=== PATIENT | female | born 1965 | race Caucasian/White ===

== ENCOUNTER → 2016-03-05 | Outpatient (CLI) | payer OTHER ==
[2016-03-05 14:20] LABS: CH 31.2; CHCM 34.5; HCT 38.5 % (34.0-46.0); HDW 2.74; MCH 30.7 pg (25.0-35.0); MCHC 33.8 g/dL (31.0-37.0); MCV 90.8 fL (80.0-100.0); Mean Platelet Volume 6.5; RBC 4.24 m/uL (3.80-5.40); RDW 12.7 % (11.5-15.5); WBC 10.3 k/uL (3.8-10.6)
[2016-03-05 14:28] LABS: Partial Thromboplastin Time 24.7 sec (22.0-30.0); Prothrombin Time 10.4 sec (9.0-12.0)
== END | disposition home or self-care (01) ==
LOC: LABWHC1 12:43
PROVIDERS: ATTEND Otolaryngology
DX: Z01.812 Encounter for preprocedural laboratory examination (principal); J35.01 Chronic tonsillitis
CPT/HCPCS: 85027; 85610; 85730

== ENCOUNTER 2016-03-13 08:41 | Day surgery (SDC) | payer OTHER ==
[2016-03-10 12:17] VITALS: BMI 47.4
--- NOTE | 2016-03-13 06:28 | HP ---
DATE OF ADMISSION: Chief complaint is chronic tonsillitis. HISTORY OF PRESENT ILLNESS: This patient is a 50-year-old female who recently presented to my office complaining of having recurrent episodes of tonsillitis despite treatment with various types of oral antibiotics. During these episodes, the patient ( ) comes quite ill and experiences an extremely severe sore throat. She also complains that her tonsils are quite large and at times they swell up so much during these infections that they interfere with her breathing. This tends to provoke panic attacks for which she apparently takes Xanax on a p.r.n. basis. She is a nonsmoker and never has used any tobacco products. At the time she was seen in my office, clinical examination of oropharynx revealed 4+ cryptic tonsils filled with white cheesy debris. It was recommended the patient undergo a tonsillectomy under general anesthesia. Past medical history reveals the patient has no known allergies to medications. Current medications include a course of Augmentin that she is completing, Xanax, Motrin and atenolol. The patient was advised to stop the Motrin as of now and not resume until further notice after her surgery. REVIEW OF SYSTEMS: Cardiovascular is positive for PVCs. Respiratory is negative. Gastrointestinal is negative. Metabolic/endocrine is negative. Musculoskeletal is positive for osteoarthritis. The remainder of review of systems is unremarkable. Past surgical history Reveals the patient is 2 para, ( ) , 2 , 0 miscarriages. She has not had any other surgeries. PHYSICAL EXAMINATION: The patient is a anxious 50-year-old female who is alert and cooperative. HEENT EXAMINATION: Patient is normocephalic. Tympanic membranes are normal. Middle ear spaces are free of any fluid or infection. Pupils are equal, round, and reactive to light and accommodation. Extraocular movements are within normal limits. Intranasal examination reveals moderate septal deviation with compensatory hypertrophy of inferior turbinates. Examination of oropharynx reveals 4+ tonsillar hypertrophy with very prominent tonsillar crypts filled with white cheesy debris. Palpation of the neck and cranial nerves 2 through 12 are all within normal limits as is the remainder of the head and neck exam. CHEST/CARDIOVASCULAR: Both lung rojas are clear to percussion and auscultation. The patient is in regular sinus rhythm. S1 and S2 are present without evidence of any murmurs, S3s or S4. Peripheral pulses are bilaterally symmetrical and within normal limits. ABDOMEN: There is no evidence of any masses, megaly or tenderness. The abdomen is soft. Skin is unremarkable. Musculoskeletal and neurological are within normal limits. PELVIC/RECTAL EXAM; The pelvic and rectal exam is deferred at this time because the patient has this done on a regular basis at her family physician's office. The remainder of the physical exam is essentially unremarkable. IMPRESSION: Chronic tonsillitis with tonsillar hypertrophy. PLAN: The patient is scheduled to undergo a tonsillectomy under general anesthesia in a.m. ATTENTION RNS IN THE PRESURGICAL AREA: I have ordered for the patient to receive 2 million units of aqueous penicillin G IV and also 1000 mg of Ofirmev IV, both to be given upon arrival to the presurgical area once an intravenous line has been established. No other presurgical prophylactic antibiotics have been ordered by me or my office. If any other prophylactic antibiotics other than aqueous Pen-G are sent to the presurgical area for this patient, please cancel them and send them back to pharmacy and make sure that the patient's account is credited appropriately. I have also ordered for the patient to have Venodynes placed on her legs in the presurgical area. I have explained the operation/procedure to the patient, including the risks, benefits, side effects, alternative therapies (including not receiving the proposed treatment or service), the likelihood of the patient achieving his/her goals, and potential recuperation problems for the procedure/sedation/analgesia, as well as any blood products, if indicated. I also explained to the patient the risks, benefits, and side effects of the alternatives, as well as the risks related to not receiving the proposed procedure, care treatment or services.
[~2016-03-13 08:41] MED LIST: HYDROmorphone 1 MG/ML 1 ML SYRINGE IVP PRN; LACTATED RINGERS 1,000 ML IV SCH; MIDAZOLAM 2 MG/2 ML VIAL IV PRN; NALOXONE 0.4 MG/ML 1 ML VIAL IV PRN; ONDANSETRON 4 MG/2 ML VIAL IVP ONE; Pre Op ABX Message 1 EACH MISC MISCELLANE ONE; SCOPOLAMINE 1.5MG/72HR PATCH TRANSDERM ONE
[2016-03-13] MEDS ORDERED: LIDOCAINE 1% 20 ML VIAL (10MG/ML) FOR IV START INTRADERMA ONE (09:24)
[2016-03-13] MEDS ORDERED: DEXAMETHASONE SOD PHOSPHATE 10 MG/ML 1 ML VIAL IV ONE (09:43)
[2016-03-13] MEDS ORDERED: ACETAMINOPHEN IV (For NPO) 1,000 MG in EMPTY BAG 1 BAG IVPB ONE ×2 (09:45→16:00)
[2016-03-13] MEDS ORDERED: PENICILLIN G POTASSIUM 2,000,000 UNIT in DEXTROSE 5% IN WATER 100 ML IVPB ONE ×2 (09:45)
[2016-03-13] MEDS ORDERED: ePHEDrine 50 MG/ML 1 ML AMP ONE (10:18)
[2016-03-13] MEDS ORDERED: LIDOCAINE 1% INJ 10MG/ML (20 ML MDV) ONE (10:18)
[2016-03-13] MEDS ORDERED: PROPOFOL 10 MG/ML 20 ML VIAL IV ONE (10:18)
[2016-03-13] MEDS ORDERED: SUCCINYLCHOLINE CHLORIDE VIAL 200 MG/10 ML VIAL IV ONE (10:18)
[2016-03-13] MEDS ORDERED: MIDAZOLAM 2 MG/2 ML VIAL ONE (10:18)
[2016-03-13] MEDS ORDERED: fentaNYL (PF) 50 MCG/ML 2 ML AMP ONE (10:18)
[2016-03-13] MEDS ORDERED: BUPIVACAINE (PF) 0.5% 30 ML VIAL SQ ONE ×4 (10:44)
[2016-03-13] MEDS ORDERED: LACTATED RINGERS 1,000 ML IV ONE (11:08)
[2016-03-13] MEDS ORDERED: LACTATED RINGERS 1,000 ML IV SCH (11:15)
[2016-03-13] MEDS ORDERED: HYDROmorphone PCA 5 MG/25 ML SYRINGE IV PRN (11:15)
[2016-03-13 12:13] VITALS: TEMP 97.4
[2016-03-13] MEDS ORDERED: ONDANSETRON 4 MG/2 ML VIAL IVP PRN (16:00)
[2016-03-13 16:13] VITALS: BP 112/54; PULSE 73; RESP 16
--- NOTE | 2016-03-13 18:11 | OP ---
DATE OF SERVICE: 03/13/2016 SURGEON: VAL VALENTIN MD ART HISTORY INSTRUCTOR: PREOPERATIVE DIAGNOSIS: Chronic tonsillitis. POSTOPERATIVE DIAGNOSIS: Chronic tonsillitis. OPERATION: Tonsillectomy. ANESTHESIA: General anesthesia. ESTIMATED BLOOD LOSS: Less than 50 mL. SPECIMENS REMOVED: COMPLICATIONS: None. OPERATIVE FINDINGS: OPERATIVE PROCEDURE: The patient was placed on the operating table in the supine position, after uneventful induction and endotracheal intubation, satisfactory general anesthesia was obtained. Next, the #3 Teena-Jaime mouth gag was introduced into the oropharynx, expanded and suspended from a Man stand. Following this, both peritonsillar areas were injected with approximately 10 mL of 0.25% Marcaine solution without epinephrine. Following this, attention was directed toward the right tonsil which was grasped with the tonsillar forceps and pulled medially. The sickle knife was used to make an incision 4 mm lateral to the anterior pillar, beginning at the superior pole and working down to the inferior pole with a similar incision being carried out parallel to the posterior pillar. The angle scissors and the serrated Marybeth dissector were used to dissect the tonsil away from the tonsillar fossa. The tonsil itself was excised en toto using the tonsillar snare. Hemostasis was obtained using suction cautery. A sponge was placed in the empty tonsillar fossa. Attention was then directed to the left tonsil where the same procedure was carried out, with the left tonsil being grasped with the tonsillar forceps and pulled medially. The sickle knife was used to make an incision 4 mm lateral to the anterior pillar beginning at the superior pole and working down to the inferior pole with a similar incision being carried out parallel to the posterior pillar. Once again, the angle scissors and the serrated Marybeth dissector were used to dissect the tonsil away from the tonsillar fossa and the tonsil itself was excised en toto using the tonsillar snare. Hemostasis was obtained using suction cautery. A sponge was placed in the empty tonsillar fossa. The mouth gag was relaxed for a period of approximately 7 minutes and upon re-expanding and removing all sponges, no evidence of any active bleeding was noted. At this point, the procedure was terminated. There were no intraoperative complications. The patient tolerated the procedure well and was returned to the recovery room in satisfactory condition.
== END 2016-03-13 16:59 | disposition home or self-care (01) ==
LOC: OR 08:41
PROVIDERS: ATTEND Otolaryngology
DX: J35.01 Chronic tonsillitis (principal); Z79.1 Long term (current) use of non-steroidal anti-inflammatories (NSAID); Z79.891 Long term (current) use of opiate analgesic; Z79.899 Other long term (current) drug therapy; Z79.2 Long term (current) use of antibiotics
CPT/HCPCS: 81025; 88304; 42826; J2250; J0330; J1100; J2540; J2405; J2001; J3010; J1170; J0131; J2704

== ENCOUNTER 2016-03-19 05:56 | Emergency (ER) | payer OTHER ==
--- NOTE | 2016-03-19 06:40 | ED ---
Pediatric HENT HPI - General Chief Complaint: ENT Stated Complaint: Tonsils Bleed Post Op Time Seen by Provider: 03/19/16 06:21 Source: patient, RN notes reviewed Mode of arrival: ambulatory Limitations: no limitations - History of Present Illness Initial Comments: This patient is a 50-year-old woman who presents to have evaluation this morning after she had felt some drainage in her throat and then when she coughed found that it was bloody. She reports that 6 days ago she had tonsillectomy performed by Dr. Bloom. The patient states that when she notes the bleeding she had her bring her here. She did have some nausea and vomited was small amount of blood. Currently the patient is not having nausea or vomiting. She is feeling a little bit anxious and warm. She is having just a little bit of discomfort in the throat. She is not having any difficulty with speech or any shortness of breath. Patient denies use of any anticoagulant or blood in her medications. She is denying chest pain, palpitations, lightheadedness, syncope, or other symptoms of anemia. MD Complaint: other Onset/Timin -: hour(s) Fever: No Pain Location: throat - Related Data Home Medications Medication Instructions Recorded Confirmed Atenolol [Tenormin] 25 mg PO HS 11/14/15 03/19/16 ALPRAZolam [Xanax] 0.25 mg PO TID PRN 03/10/16 03/19/16 Previous Rx's Medication Instructions Recorded Cefdinir [Omnicef] 600 mg PO Q24HR #20 capsule NS 03/13/16 oxyCODONE HCL/ACETAMINOPHEN 1 tab PO Q4HR PRN #40 tab NS 03/13/16 [Percocet 7.5-325 mg] Allergies Allergy/AdvReac Type Severity Reaction Status Date / Time latex Allergy TINGLING Verified 03/13/16 09:09 OF MOUTH/LIPS, RASH TO SKIN Milk Containing Products Allergy Abdominal Verified 03/13/16 09:09 [Dairy] Pain, DIARRHEA prednisone AdvReac "OCC Verified 03/13/16 09:09 CAUSES HEART TO RACE, FEEL MISERABLE" Review of Systems ROS Statement: Those systems with pertinent positive or pertinent negative responses have been documented in the HPI. ROS Other: All systems not noted in ROS Statement are negative. Constitutional: Denies: fever, chills, weakness ENT: Reports: as per HPI, throat pain, other (Post tonsillectomy bleeding) Respiratory: Denies: cough, dyspnea, wheezes Cardiovascular: Denies: chest pain, palpitations, syncope Gastrointestinal: Reports: vomiting. Denies: abdominal pain Musculoskeletal: Denies: back pain Neurological: Denies: headache Hematological/Lymphatic: Denies: easy bleeding Past Medical History Past Medical History: GERD/Reflux, Musculoskeletal Disorder, Thyroid Disorder Additional Past Medical History / Comment(s): Occasional PVC's. Seasonal allergies. HX THYROID PROB, NO CURRENT TX. LT KNEE PAIN, CREWS'S CYST. ENLARGED TONSILS History of Any Multi-Drug Resistant Organisms: None Reported Past Surgical History: Section, Tonsillectomy Additional Past Surgical History / Comment(s): C-S X2. Past Anesthesia/Blood Transfusion Reactions: Family History of Problems w/ Anesthesia, Motion Sickness Additional Past Anesthesia/Blood Transfusion Reaction / Comment(s): MOTHER HAD HX AGITATION AFTER ANESTHESIA. Past Psychological History: Anxiety, Depression Additional Psychological History / Comment(s): "HX PP BLUES" IN PAST. Smoking Status: Never smoker Past Alcohol Use History: None Reported Past Drug Use History: None Reported - Past Family History Mother Family Medical History: Cancer General Exam Limitations: no limitations General appearance: alert, in no apparent distress, obese Head exam: Present: atraumatic, normocephalic Eye exam: Present: normal appearance. Absent: scleral icterus, conjunctival injection ENT exam: Present: mucous membranes moist, other (Patient has granulation tissue to the tonsillar pillars bilaterally. There has been some recent bleeding on the right side, but no active bleeding. Uvula is midline without edema. no evidence of secondary infection.) Neck exam: Present: normal inspection, full ROM. Absent: tenderness, meningismus, lymphadenopathy, thyromegaly Respiratory exam: Present: normal lung sounds bilaterally. Absent: respiratory distress, wheezes, rales, rhonchi, stridor Cardiovascular Exam: Present: regular rate, normal rhythm, normal heart sounds. Absent: systolic murmur, diastolic murmur, rubs, gallop Neurological exam: Present: alert Psychiatric exam: Present: anxious Skin exam: Present: warm, dry, intact, normal color. Absent: rash, cyanosis, diaphoretic, erythema, petechiae, pallor, mottled Course Vital Signs 03/19/16 06:06 Temperature 98.4 F Pulse Rate 74 Respiratory 16 Rate Blood Pressure 125/70 O2 Sat by Pulse 97 Oximetry Medical Decision Making - Lab Data Result diagrams: 03/19/16 06:41 Lab Results 03/19/16 Range/Units 06:41 WBC 9.0 (3.8-10.6) k/uL RBC 4.39 (3.80-5.40) m/uL Hgb 13.3 (11.4-16.0) gm/dL Hct 39.4 (34.0-46.0) % MCV 89.7 (80.0-100.0) fL MCH 30.3 (25.0-35.0) pg MCHC 33.8 (31.0-37.0) g/dL RDW 13.0 (11.5-15.5) % Plt Count 332 (150-450) k/uL Neutrophils % 77 % Lymphocytes % 15 % Monocytes % 5 % Eosinophils % 2 % Basophils % 0 % Neutrophils # 7.0 (1.3-7.7) k/uL Lymphocytes # 1.4 (1.0-4.8) k/uL Monocytes # 0.4 (0-1.0) k/uL Eosinophils # 0.2 (0-0.7) k/uL Basophils # 0.0 (0-0.2) k/uL Disposition Clinical Impression: Tonsillar bleed Disposition: HOME SELF-CARE Condition: Good Instructions: *[facility] - ([facility]) Tonsillectomy Post-Op Instructions Referrals: Elpidio Edouard Jr, DO [Primary Care Provider] - 1-2 days Ervin Bloom MD [STAFF PHYSICIAN] - 1-2 days
[2016-03-19 06:52] LABS: Basophils % (A) 0 %; CH 31.3; Eosinophils # (A) 0.2 k/uL (0-0.7); Eosinophils % (A) 2 %; HCT 39.4 % (34.0-46.0); HDW 2.87; HGB 13.3 gm/dL (11.4-16.0); Luc % (Auto) 1; Lymphocytes # (A) 1.4 k/uL (1.0-4.8); Lymphocytes % (A) 15 %; MCH 30.3 pg (25.0-35.0); MCHC 33.8 g/dL (31.0-37.0); MCV 89.7 fL (80.0-100.0); Mean Platelet Volume 6.6; Monocytes # (A) 0.4 k/uL (0-1.0); Monocytes % (A) 5 %; Neutrophils % (A) 77 %; RBC 4.39 m/uL (3.80-5.40); WBC (Perox) 9.22
[2016-03-19 07:52] VITALS: BP 128/54; PULSE 62; RESP 15; TEMP 97.6
== END 2016-03-19 07:51 | disposition home or self-care (01) ==
LOC: EC 05:56
DX: J95.830 Postprocedural hemorrhage of a respiratory system organ or structure following a respiratory system procedure (principal); F41.9 Anxiety disorder, unspecified; F32.9 Major depressive disorder, single episode, unspecified; Z79.899 Other long term (current) drug therapy; Z91.040 Latex allergy status; Z88.8 Allergy status to other drugs, medicaments and biological substances; Z91.011 Allergy to milk products; Z90.89 Acquired absence of other organs; Y83.8 Other surgical procedures as the cause of abnormal reaction of the patient, or of later complication, without mention of misadventure at the time of the procedure
CPT/HCPCS: 36415; 85025; 99283

== ENCOUNTER → 2016-03-19 | Outpatient (CLI) | payer OTHER ==
[~2016-03-19] MED LIST changes: +ACETAMINOPHEN IV (For NPO) 100 ML IVPB NR; +DEXAMETHASONE SOD PHOSPHATE 10 MG/ML 1 ML VIAL IV NR; -HYDROmorphone 1 MG/ML 1 ML SYRINGE IVP PRN; +HYDROmorphone 2 MG/ML 1 ML SYRINGE IVP NR; +LACTATED RINGERS 1,000 ML IV ONE; -LACTATED RINGERS 1,000 ML IV SCH; -MIDAZOLAM 2 MG/2 ML VIAL IV PRN; -NALOXONE 0.4 MG/ML 1 ML VIAL IV PRN; +ONDANSETRON 4 MG/2 ML VIAL IVP NR; -ONDANSETRON 4 MG/2 ML VIAL IVP ONE; -Pre Op ABX Message 1 EACH MISC MISCELLANE ONE; -SCOPOLAMINE 1.5MG/72HR PATCH TRANSDERM ONE; +SODIUM CHLORIDE 0.9% 250 ML in EMPTY BAG 1 BAG IV PRN; +SODIUM CHLORIDE 0.9% 500 ML in EMPTY BAG 1 BAG IV PRN
[2016-03-19 13:18] VITALS: BP 128/62; PULSE 74; RESP 18; TEMP 98.4
== END | disposition home or self-care (01) ==
LOC: PROCWHC3 11:52
PROVIDERS: ATTEND Otolaryngology
DX: E86.0 Dehydration (principal)
CPT/HCPCS: 96360; 96361; 96367; 96375; J1170; J1100; J2405; J0131

== ENCOUNTER 2017-03-06 12:30 | Emergency (ER) | payer BC, OTHER ==
[2017-03-06] MEDS ORDERED: SODIUM CHLORIDE 0.9% 1,000 ML IV STA (13:03)
--- NOTE | 2017-03-06 13:10 | ED ---
General Adult HPI - General Chief complaint: Abdominal Pain Stated complaint: Abd Pain Time Seen by Provider: 03/06/17 12:53 Source: patient, RN notes reviewed Mode of arrival: ambulatory Limitations: no limitations - History of Present Illness Initial comments: Patient 51-year-old female who presents to return today with a chief complaint of abdominal pain over the last several months. She states that she was diagnosed with mono. Patient states that she began having pain over the last month. She states worse on the right side. States worse and right upper quadrant wrapping around to the back. She does not that is worse after she eats certain foods. Patient denies any other complaints or associated symptoms. Patient denies any recent fever, chills, shortness of breath, chest pain, nausea vomiting, numbness or tingling, dysuria or hematuria, constipation or diarrhea, headaches or visual changes, or any other complaints. - Related Data Home Medications Medication Instructions Recorded Confirmed Atenolol [Tenormin] 25 mg PO HS 11/14/15 03/06/17 ALPRAZolam [Xanax] 0.125 - 0.25 mg PO TID PRN 03/10/16 03/06/17 Ibuprofen [Motrin] 800 mg PO Q8H PRN 03/06/17 03/06/17 Allergies Allergy/AdvReac Type Severity Reaction Status Date / Time latex Allergy TINGLING Verified 03/06/17 13:08 OF MOUTH/LIPS, RASH TO SKIN Milk Containing Products Allergy Abdominal Verified 03/06/17 13:08 [Dairy] Pain, DIARRHEA prednisone AdvReac "OCC Verified 03/06/17 13:08 CAUSES HEART TO RACE, FEEL MISERABLE" Review of Systems ROS Statement: Those systems with pertinent positive or pertinent negative responses have been documented in the HPI. ROS Other: All systems not noted in ROS Statement are negative. Past Medical History Past Medical History: GERD/Reflux, Musculoskeletal Disorder, Thyroid Disorder Additional Past Medical History / Comment(s): Occasional PVC's. Seasonal allergies. HX THYROID PROB, NO CURRENT TX. LT KNEE PAIN, CREWS'S CYST. ENLARGED TONSILS History of Any Multi-Drug Resistant Organisms: None Reported Past Surgical History: Section, Tonsillectomy Additional Past Surgical History / Comment(s): C-S X2. Past Anesthesia/Blood Transfusion Reactions: Family History of Problems w/ Anesthesia, Motion Sickness Additional Past Anesthesia/Blood Transfusion Reaction / Comment(s): MOTHER HAD HX AGITATION AFTER ANESTHESIA. Past Psychological History: Anxiety, Depression Smoking Status: Never smoker Past Alcohol Use History: None Reported Past Drug Use History: None Reported - Past Family History Mother Family Medical History: Cancer General Exam Limitations: no limitations General appearance: alert Head exam: Present: atraumatic, normocephalic, normal inspection Eye exam: Present: normal appearance, EOMI. Absent: scleral icterus, conjunctival injection, periorbital swelling ENT exam: Present: normal exam, normal oropharynx, mucous membranes moist Neck exam: Present: normal inspection, full ROM Respiratory exam: Present: normal lung sounds bilaterally. Absent: respiratory distress, wheezes, rales, rhonchi, stridor Cardiovascular Exam: Present: regular rate, normal rhythm, normal heart sounds. Absent: systolic murmur, diastolic murmur, rubs, gallop, clicks GI/Abdominal exam: Present: other (Normal appearance of the abdomen. Normal bowel sounds. Abdomen soft on palpation. Patient does have tenderness in the left upper quadrant and epigastric. Greatest tenderness in the right upper quadrant with positive Cadet sign. No rebound tenderness. No guarding.) Extremities exam: Present: normal inspection, full ROM, normal capillary refill. Absent: tenderness, pedal edema, joint swelling, calf tenderness Neurological exam: Present: alert, oriented X3, CN II-XII intact Psychiatric exam: Present: normal affect, normal mood Skin exam: Present: warm, dry, intact, normal color. Absent: rash Course Vital Signs 03/06/17 03/06/17 12:44 14:05 Temperature 98.1 F Pulse Rate 64 63 Respiratory 18 18 Rate Blood Pressure 123/61 126/58 O2 Sat by Pulse 99 98 Oximetry Medical Decision Making - Medical Decision Making Patient's labs been reviewed are unremarkable. Her ultrasound of the right upper quadrant shows hepatomegaly with some fatty infiltrate. Results were discussed with the patient. Patient resting comfortably at this time. Advised following up she does have an appointment Wednesday morning with her family doctor. Advised to return to emergency room symptoms increase or worsen or for new concerns. States understanding and is in agreement. - Lab Data Result diagrams: 03/06/17 13:20 03/06/17 13:20 Lab Results 03/06/17 03/06/17 03/06/17 Range/Units 13:20 13:20 13:20 WBC 8.0 (3.8-10.6) k/uL RBC 4.65 (3.80-5.40) m/uL Hgb 14.1 (11.4-16.0) gm/dL Hct 41.4 (34.0-46.0) % MCV 89.0 (80.0-100.0) fL MCH 30.4 (25.0-35.0) pg MCHC 34.1 (31.0-37.0) g/dL RDW 12.7 (11.5-15.5) % Plt Count 245 (150-450) k/uL Neutrophils % 79 % Lymphocytes % 14 % Monocytes % 5 % Eosinophils % 1 % Basophils % 0 % Neutrophils # 6.3 (1.3-7.7) k/uL Lymphocytes # 1.1 (1.0-4.8) k/uL Monocytes # 0.4 (0-1.0) k/uL Eosinophils # 0.1 (0-0.7) k/uL Basophils # 0.0 (0-0.2) k/uL Sodium 139 (137-145) mmol/L Potassium 4.3 (3.5-5.1) mmol/L Chloride 102 (98-107) mmol/L Carbon Dioxide 27 (22-30) mmol/L Anion Gap 10 mmol/L BUN 6 L (7-17) mg/dL Creatinine 0.64 (0.52-1.04) mg/dL Est GFR (MDRD) Af Amer >60 (>60 ml/min/1.73 sqM) Est GFR (MDRD) Non-Af >60 (>60 ml/min/1.73 sqM) Glucose 94 (74-99) mg/dL Calcium 10.1 (8.4-10.2) mg/dL Total Bilirubin 1.1 (0.2-1.3) mg/dL AST 20 (14-36) U/L ALT 23 (9-52) U/L Alkaline Phosphatase 58 (38-126) U/L Total Protein 7.2 (6.3-8.2) g/dL Albumin 4.4 (3.5-5.0) g/dL Amylase 32 (30-110) U/L Lipase 106 (23-300) U/L Urine Color Light Yellow Urine Appearance Cloudy H (Clear) Urine pH 6.0 (5.0-8.0) Ur Specific [place] 1.002 (1.001-1.035) Urine Protein Negative (Negative) Urine Glucose (UA) Negative (Negative) Urine Ketones Negative (Negative) Urine Blood Negative (Negative) Urine Nitrite Negative (Negative) Urine Bilirubin Negative (Negative) Urine Urobilinogen <2.0 (<2.0) mg/dL Ur Leukocyte Esterase Negative (Negative) Urine RBC <1 (0-5) /hpf Urine WBC <1 (0-5) /hpf Ur Squamous Epith Cells 5 H (0-4) /hpf Urine Bacteria Rare H (None) /hpf Disposition Clinical Impression: Hepatomegaly, Abdominal pain Disposition: HOME SELF-CARE Condition: Good Instructions: Abdominal Pain (ED) Additional Instructions: Please use medication as discussed. Please follow-up with family doctor in the next 2 days. Please return to emergency room if the symptoms increase or worsen or for any other concerns. Referrals: Elpidio Edouard Jr, [Doctor of Osteopathic Medicine] - 1-2 days Time of Disposition: 15:28
[2017-03-06 13:50] LABS: Basophils % (A) 0 %; Eosinophils # (A) 0.1 k/uL (0-0.7); Eosinophils % (A) 1 %; HCT 41.4 % (34.0-46.0); HGB 14.1 gm/dL (11.4-16.0); Lymphocytes # (A) 1.1 k/uL (1.0-4.8); Lymphocytes % (A) 14 %; MCH 30.4 pg (25.0-35.0); MCHC 34.1 g/dL (31.0-37.0); Mean Platelet Volume 6.6; Monocytes # (A) 0.4 k/uL (0-1.0); Monocytes % (A) 5 %; Neutrophils # (A) 6.3 k/uL (1.3-7.7); Neutrophils % (A) 79 %; Platelet Count 245 k/uL (150-450); RBC 4.65 m/uL (3.80-5.40); RDW 12.7 % (11.5-15.5)
[2017-03-06 13:56] LABS: ALT 23 U/L (9-52); AST 20 U/L (14-36); Albumin 4.4 g/dL (3.5-5.0); Alkaline Phosphatase 58 U/L (38-126); Amylase 32 U/L (30-110); Anion Gap 10 mmol/L; Blood Urea Nitrogen 6 mg/dL (7-17); Calcium 10.1 mg/dL (8.4-10.2); Carbon Dioxide 27 mmol/L (22-30); Chloride 102 mmol/L (98-107); Glucose 94 mg/dL (74-99); Lipase 106 U/L (23-300); Potassium 4.3 mmol/L (3.5-5.1); Sodium 139 mmol/L (137-145); Total Bilirubin 1.1 mg/dL (0.2-1.3); Total Protein 7.2 g/dL (6.3-8.2)
[2017-03-06 14:00] LABS: Appearance,Urine Cloudy (Clear); Bacteria,Urine Rare /hpf; Bilirubin,Urine Negative (Negative); Blood,Urine Negative (Negative); Color,Urine Light Yellow; Glucose,Urine (UA) Negative (Negative); Ketones,Urine Negative (Negative); Leukocyte Esterase,Urine Negative (Negative); Nitrite,Urine Negative (Negative); Protein,Urine Negative (Negative); RBC,Urine <1 /hpf (0-5); Specific Gravity,Urine 1.002 (1.001-1.035); Squamous Epithelial Cell,Urine 5 /hpf (0-4); Urobilinogen,Urine <2.0 mg/dL (<2.0); WBC,Urine <1 /hpf (0-5)
--- NOTE | 2017-03-06 14:50 | US ---
EXAMINATION TYPE: US abdomen limited DATE OF EXAM: 03/06/2017 COMPARISON: Previous study dated 03/20/2015. CLINICAL HISTORY: Pain. Bloating, RUQ pain, h/o mono and pneumonia 01/24 EXAM MEASUREMENTS: Liver Length: 19.0cm cm Gallbladder Wall: 0.2cm CBD: 0.5 cm Right Kidney: 10.7 x 5.0 x 5.1 cm *Overlying bowel gas limits exam, patient rolled and tried to hold breath to optimize imaging Pancreas: limited imaging appear wnl Liver: difficult to penetrate, slightly enlarged Gallbladder: wnl Evidence for sonographic Cadet's sign: no CBD: wnl Right Kidney: wnl Limited views of the pancreas are normal. The liver is mildly prominent measuring 19 cm. Its echogenic and likely fatty infiltrated. The gallbladder is normal. The gallbladder wall measures 2 mm. The distal common hepatic duct measure s 5 mm. There is no sonographic Cadet's sign. The right kidney is unremarkable. IMPRESSION: MILD HEPATOMEGALY AND FATTY INFILTRATION OF THE LIVER.
[2017-03-06] MEDS ORDERED: KETOROLAC 30 MG/ML 1 ML VIAL IVP STA (15:27)
[2017-03-06 15:31] VITALS: BP 128/58; PULSE 84; RESP 16; TEMP 97
== END 2017-03-06 15:40 | disposition home or self-care (01) ==
LOC: EC 12:30
DX: R16.0 Hepatomegaly, not elsewhere classified (principal); R10.11 Right upper quadrant pain; K76.0 Fatty (change of) liver, not elsewhere classified; M54.9 Dorsalgia, unspecified; Z79.899 Other long term (current) drug therapy; Z88.8 Allergy status to other drugs, medicaments and biological substances; Z91.011 Allergy to milk products; Z91.040 Latex allergy status
CPT/HCPCS: 36415; 80053; 82150; 83690; 85025; 81001; 76705; 99284; 96374; 96361; J1885

== ENCOUNTER → 2017-04-28 | Outpatient (CLI) | payer BC ==
--- NOTE | 2017-04-29 07:18 | US ---
EXAMINATION TYPE: US thyroid st tissue head/neck DATE OF EXAM: 04/28/2017 COMPARISON: NONE CLINICAL HISTORY: E06.9 THYROIDITIS,E04.9 GOITER. Patient stated had hand,foot and mouth virus and sw ollen neck was noted at time of infection GLAND SIZE: Right Lobe: 3.9 x 1.6 x 1.7 cm Overall Parenchyma: homogenous Left Lobe: 4.5 x 1.4 x 1.2 cm Overall Parenchyma: homogeneous Isthmus Thickness: 0.4 cm NODULES RIGHT: # of nodules measured on right: 0. Inferior to right thyroid is hyperechoic oval node = 0.5 x 0.4 x 0.6cm. LEFT: # of nodules measured on left: 0 ISTHMUS: # of nodules measured in the isthmus: 0 Bilateral neck scanned: upper right neck lymph node imaged = 1.8 x 1.0 x 0.6cm and left upper neck n ode = 2.5 x 1.2 x 0.8cm. IMPRESSION: 1. Hyperechoic nonspecific nodule right thyroid lobe. 2. Prominent lymph nodes within the neck as noted above. Correlate clinically.
== END | disposition home or self-care (01) ==
LOC: RADUSWWP 15:49
PROVIDERS: ATTEND Family Medicine
DX: E04.1 Nontoxic single thyroid nodule (principal); Z88.8 Allergy status to other drugs, medicaments and biological substances; Z91.011 Allergy to milk products; Z91.018 Allergy to other foods; Z91.040 Latex allergy status
CPT/HCPCS: 76536

== ENCOUNTER 2017-06-16 08:46 | Day surgery (SDC) | payer BC ==
[2017-06-16 09:45] VITALS: RESP 18; TEMP 98.1
[2017-06-16 12:53] VITALS: BP 107/54; PULSE 68
--- NOTE | 2017-06-16 15:29 | US ---
ULTRASOUND GUIDED FNA BILATERAL NECK MASSES BIOPSY: CLINICAL HISTORY: Bilateral neck masses FINDINGS: The procedure was explained to the patient. The risks, complications, benefits and alternatives were discussed and any questions were answered. Informed consent was obtained. Patient was placed supine on the ultrasound table and prepped and draped in the usual sterile fashion. Utilizing a 25 gauge needle, five passes were made into the requested nodules. Patient was stable throughout the procedure. Pathology is pending. All elements of maximal barrier technique were utilized. IMPRESSION: 1. Successful ultrasound guided bilateral neck mass biopsy. MTDD
== END 2017-06-16 11:00 | disposition home or self-care (01) ==
LOC: RADPROMAIN 08:46
PROVIDERS: ATTEND Otolaryngology
DX: R59.0 Localized enlarged lymph nodes (principal)
CPT/HCPCS: 10022; 76942; 88173; 88305

== ENCOUNTER 2017-07-29 19:52 | Emergency (ER) | payer BC ==
[2017-07-29] MEDS ORDERED: DEXAMETHASONE SOD PHOSPHATE 10 MG/ML 1 ML VIAL IM STA (20:59)
--- NOTE | 2017-07-29 21:02 | ED ---
General Adult HPI - General Chief complaint: Recheck/Abnormal Lab/Rx Stated complaint: tongue swelling/anxiety Time Seen by Provider: 07/29/17 20:21 Source: patient, family Mode of arrival: ambulatory Limitations: no limitations - History of Present Illness Initial comments: 51-year-old female patient presents to the emergency department today for evaluation of tongue swelling. Patient states that she has been dealing with this on and off for the last 3 months. Patient states that she was seen and evaluated at urgent care for this on Wednesday, did receive IM dose of steroids which did resolve her symptoms until today. Patient denies any ingestion of new substances including medications or foods. Denies any difficulty breathing to states that her tongue feels thick. Denies any rash, itching, or intraoral lesions. Patient states she does have a history of anxiety, and has taken Xanax without relief of symptoms. Patient denies any recent rash, fever, chills , chest pain, abdominal pain, nausea, vomiting, diarrhea, constipation, back pain, numbness, tingling, dizziness, weakness, hematuria, dysuria, urinary urgency, urinary frequency, headache, visual changes, or any other complaints. - Related Data Home Medications Medication Instructions Recorded Confirmed Atenolol [Tenormin] 25 mg PO HS 11/14/15 07/29/17 Ibuprofen [Motrin] 800 mg PO Q8H PRN 03/06/17 07/29/17 Dicyclomine [Bentyl] 10 mg PO TID PRN 06/16/17 07/29/17 Fexofenadine HCl [Pat Allergy] 180 mg PO DAILY 07/29/17 07/29/17 Allergies Allergy/AdvReac Type Severity Reaction Status Date / Time latex Allergy TINGLING Verified 07/29/17 20:23 OF MOUTH/LIPS, RASH TO SKIN Milk Containing Products Allergy Abdominal Verified 07/29/17 20:23 [Dairy] Pain, DIARRHEA prednisone AdvReac "OCC Verified 07/29/17 20:23 CAUSES HEART TO RACE, FEEL MISERABLE" shellfish derived [Shellfish] AdvReac Unknown Verified 07/29/17 20:23 Review of Systems ROS Statement: Those systems with pertinent positive or pertinent negative responses have been documented in the HPI. ROS Other: All systems not noted in ROS Statement are negative. Past Medical History Past Medical History: GERD/Reflux, Musculoskeletal Disorder, Thyroid Disorder Additional Past Medical History / Comment(s): Occasional PVC's. Seasonal allergies. HX THYROID PROB, NO CURRENT TX. LT KNEE PAIN, CREWS'S CYST. ENLARGED TONSILS History of Any Multi-Drug Resistant Organisms: None Reported Past Surgical History: Section, Tonsillectomy Additional Past Surgical History / Comment(s): C-S X2. Past Anesthesia/Blood Transfusion Reactions: Family History of Problems w/ Anesthesia, Motion Sickness Additional Past Anesthesia/Blood Transfusion Reaction / Comment(s): MOTHER HAD HX AGITATION AFTER ANESTHESIA. Past Psychological History: Anxiety Smoking Status: Never smoker Past Alcohol Use History: None Reported Past Drug Use History: None Reported - Past Family History Mother Family Medical History: Cancer General Exam Limitations: no limitations General appearance: alert, in no apparent distress, other (this is a well- developed, well-nourished adult female patient in no acute distress. Vital signs upon presentation are temperature 98.8F, pulse 66, respirations 18, blood pressure 121/81, pulse ox 97% on room air.) Eye exam: Present: normal appearance, PERRL, EOMI. Absent: scleral icterus, conjunctival injection, periorbital swelling ENT exam: Present: normal exam, normal oropharynx, mucous membranes moist, other (tongue is pink and moist. Does not appear enlarged.) Neck exam: Present: normal inspection. Absent: tenderness, meningismus, lymphadenopathy Respiratory exam: Present: normal lung sounds bilaterally. Absent: respiratory distress, wheezes, rales, rhonchi, stridor Cardiovascular Exam: Present: regular rate, normal rhythm, normal heart sounds. Absent: systolic murmur, diastolic murmur, rubs, gallop, clicks GI/Abdominal exam: Present: soft, normal bowel sounds. Absent: distended, tenderness, guarding, rebound, rigid Neurological exam: Present: alert, oriented X3, CN II-XII intact Psychiatric exam: Present: normal affect, normal mood Skin exam: Present: warm, dry, intact, normal color. Absent: rash Course Vital Signs 07/29/17 07/29/17 19:53 21:15 Temperature 98.8 F 98.7 F Pulse Rate 66 82 Respiratory 18 16 Rate Blood Pressure 121/81 133/77 O2 Sat by Pulse 97 98 Oximetry Medical Decision Making - Medical Decision Making 51-year-old female patient presents to the emergency department today for evaluation of tongue swelling. Physical examination is relatively unremarkable. Tongue does not appear enlarged. Oropharynx is clear. Patient has no lymphadenopathy or neck fullness. Patient is breathing without difficulty. Vital signs are stable. Patient will be given an IM dose of Decadron which seemed to help her for similar symptoms in the past. She is instructed to follow-up with her primary care physician and her ENT physician for recheck as soon as possible. Return parameters discussed in detail. She verbalizes understanding and agrees with this plan. Disposition Clinical Impression: Tongue swelling Disposition: HOME SELF-CARE Condition: Good Instructions: General Allergic Reaction (ED) Additional Instructions: Follow-up with your primary care physician for recheck as soon as possible. Return here immediately for any new, worsening, or concerning symptoms. Is patient prescribed a controlled substance at d/c from ED?: No Referrals: Denis Sanchez MD [Primary Care Provider] - 1-2 days Time of Disposition: 21:01
[2017-07-29 21:18] VITALS: BP 133/77; PULSE 82; RESP 16; TEMP 98.7
== END 2017-07-29 21:18 | disposition home or self-care (01) ==
LOC: EC 19:52
DX: K14.8 Other diseases of tongue (principal); Z79.899 Other long term (current) drug therapy; Z91.040 Latex allergy status; Z91.011 Allergy to milk products; Z91.013 Allergy to seafood; Z88.8 Allergy status to other drugs, medicaments and biological substances
CPT/HCPCS: 99283; 96372; J1100

== ENCOUNTER → 2017-08-18 | Outpatient (CLI) | payer BC ==
--- NOTE | 2017-08-18 09:20 | NM ---
EXAMINATION TYPE: NM hepatobiliary w EF DATE OF EXAM: 08/18/2017 COMPARISON: 03/20/2015 and ultrasound 03/06/2017 HISTORY: 51 year-old female right upper quadrant pain TECHNIQUE: After the intravenous administration of 5.5 mCi Tc 99m Mebrofenin hepatobiliary scintigrap hy is performed. Immediate images post injection. FINDINGS: There is satisfactory initial accumulation of tracer by the liver. The gallbladder is visualized wit hin 6 minutes. The small bowel activity is noted within 16 minutes. At one hour 8 ounces of oral en sure plus is given to mimic CCK and gallbladder ejection fraction is calculated at 71 %, in the upper limits of the normal range. Therefore there is no scintigraphic evidence of cystic or common bile d uct obstruction to suggest acute cholecystitis or gallbladder dyskinesia. IMPRESSION: 1. No scintigraphic evidence for acute/chronic cholecystitis or biliary dyskinesia. 2. Gallbladder ejection fraction at the upper limits of the normal range (71%). Elevated gallbladder ejection fraction has been described in the setting of gallbladder hyperkinesia. Further clinical cor relation recommended.
== END ==
LOC: RADNMMAIN 07:04
PROVIDERS: ATTEND Internal Medicine
DX: F90.8 Attention-deficit hyperactivity disorder, other type (principal); R10.11 Right upper quadrant pain
CPT/HCPCS: 78226; A9537

== ENCOUNTER → 2018-11-04 | Outpatient (CLI) | payer BC ==
--- NOTE | 2018-11-04 13:32 | US ---
EXAMINATION TYPE: US thyroid st tissue head/neck DATE OF EXAM: 11/04/2018 COMPARISON: 04/28/2017 CLINICAL HISTORY: R59.1 Head and neck lymphoadenopathy. known enlarged lymph nodes seen in 2018, no i ssues now, late follow up to asses size Scanned right and left lateral neck and largest node seen was on the right = 1.9 x 1.7 x 0.6cm, fatty hilum and vascularity still present. IMPRESSION: 1. Lymphadenopathy. Largest measures 1.9 x 1.7 x 0.6 cm on the right, smaller than the comparison john dy.
== END | disposition home or self-care (01) ==
LOC: RADUSWWP 13:00
PROVIDERS: ATTEND Internal Medicine
DX: R59.1 Generalized enlarged lymph nodes (principal)
CPT/HCPCS: 76536

== ENCOUNTER → 2018-11-24 | Outpatient (CLI) | payer BC ==
--- NOTE | 2018-11-24 14:01 | XR ---
EXAMINATION TYPE: XR cervical spine comp DATE OF EXAM: 11/24/2018 TECHNIQUE: Frontal, lateral, oblique, swimmers, and open mouth view of the cervical spine are obtaine d. HISTORY: M54.2 COMPARISON: None FINDINGS: The cervical spine is visualized in its entirety from C1 thru the top of T1 level, it is s atisfactory in alignment without evidence of acute fracture or dislocation. The pre-vertebral soft t issue appears within normal limits. Calcification of an anterior disc bulge is seen at C5-C6. This is seen on the prior of 11/27/2013. The C1-C2 articulation is within normal limits on the open mouth vi ew. The oblique images are within normal limits. IMPRESSION: No acute fracture or dislocation is seen in the cervical spine. Mild degenerative disc d isease at C5-C6.
--- NOTE | 2018-11-25 11:36 | MM ---
Reason for exam: screening (asymptomatic). Last mammogram was performed 9 years and 9 months ago. History: Patient had first child at age 33. Taking hormonal contraceptives for 10 years beginning at age 32. Physical Findings: A clinical breast exam by your physician is recommended on an annual basis and results should be correlated with mammographic findings. MG 3D Screening Mammo W/Cad Bilateral CC and MLO view(s) were taken. Prior study comparison: February 18, 2009, left breast digital mammogram. April 19, 2008, left breast mammogram dig work up. The breast tissue is heterogeneously dense. This may lower the sensitivity of mammography. There is no discrete abnormality. Benign bilateral axillary lymph nodes. ASSESSMENT: Negative, BI-RAD 1 RECOMMENDATION: Routine screening mammogram of both breasts in 1 year.
== END | disposition home or self-care (01) ==
LOC: RADMAMWWP 13:03
PROVIDERS: ATTEND Internal Medicine
DX: Z12.31 Encounter for screening mammogram for malignant neoplasm of breast (principal); M50.322 Other cervical disc degeneration at C5-C6 level
CPT/HCPCS: 72050; 77063; 77067

== ENCOUNTER 2020-05-19 11:54 | Emergency (ER) | payer BC ==
[2020-05-19 13:16] VITALS: RESP 20
--- NOTE | 2020-05-19 13:57 | XR ---
EXAMINATION TYPE: XR chest 1V DATE OF EXAM: 05/19/2020 COMPARISON: 02/05/2011 INDICATION: Cough TECHNIQUE: Single frontal view of the chest is obtained. FINDINGS: The heart size is normal. The pulmonary vasculature is normal. The lungs are clear. IMPRESSION: 1. No acute pulmonary process.
--- NOTE | 2020-05-19 14:34 | ED ---
General Adult HPI - General Source: patient Mode of arrival: ambulatory Limitations: no limitations <Jamarcus Kennedy - Last Filed: 05/19/20 14:34> <Dajuan Clement - Last Filed: 05/19/20 15:45> - General Chief complaint: Upper Respiratory Infection Stated complaint: Chest Congestion, Covid exposure Time Seen by Provider: 05/19/20 14:14 - History of Present Illness Initial comments: Dictation was produced using [employer] dictation software. please excuse any grammatical, word or spelling errors. This patient was cared for during a federal and state declared state of emergency secondary to Covid 19 Chief Complaint: 54-year-old female presents emergency department for Covid symptoms. Her son tested positive History of Present Illness 54-year-old female she has past medical history of GERD patient presents today with symptoms of Covid 19 for the last 3 days. Her son tested positive. A chin came to the emergency department to be tested. She does complain of some nonproductive cough, congestion and fever. The ROS documented in this emergency department record has been reviewed and confirmed by me. Those systems with pertinent positive or negative responses have been documented in the HPI. All other systems are other negative and/or noncontributory. PHYSICAL EXAM: General Impression: Alert and oriented x3, not in acute distress HEENT: Normocephalic atraumatic, extra-ocular movements intact, pupils equal and reactive to light bilaterally, mucous membranes moist. Cardiovascular: Heart regular rate and rhythm Chest: Able to complete full sentences, no retractions, no tachypnea Abdomen: abdomen soft, non-tender, non-distended, no organomegaly Musculoskeletal: Pulses present and equal in all extremities, no peripheral edema Motor: no focal deficits noted Neurological: CN II-XII grossly intact, no focal motor or sensory deficits noted Skin: Intact with no visualized rashes Psych: Normal affect and mood ED course: 54-year-old female presents with Covid 19 symptoms. Her son tested positive. Signs upon arrival shows findings within acceptable limits. Covid 19 rapid test is positive. Chest x-ray is nonacute. Ambulatory pulse ox is normal. Patient is not hypoxic. Patient's BMI is 41.6. Patient is a candidate for monoclonal antibody infusion. Patient is agreeable to infusion. (Jamarcus Kennedy) - Related Data Home Medications Medication Instructions Recorded Confirmed atenoloL [Tenormin] 25 mg PO HS 11/14/15 07/29/17 Ibuprofen [Motrin] 800 mg PO Q8H PRN 03/06/17 07/29/17 Dicyclomine [Bentyl] 10 mg PO TID PRN 06/16/17 07/29/17 Fexofenadine HCl [Pat Allergy] 180 mg PO DAILY 07/29/17 07/29/17 Allergies Allergy/AdvReac Type Severity Reaction Status Date / Time latex Allergy TINGLING Verified 07/29/17 20:23 OF MOUTH/LIPS, RASH TO SKIN Milk Containing Products Allergy Abdominal Verified 07/29/17 20:23 [Dairy] Pain, DIARRHEA prednisone AdvReac "OCC Verified 07/29/17 20:23 CAUSES HEART TO RACE, FEEL MISERABLE" shellfish derived [Shellfish] AdvReac Unknown Verified 07/29/17 20:23 Review of Systems ROS Other: All systems not noted in ROS Statement are negative. <Jamarcus Kennedy - Last Filed: 05/19/20 14:34> ROS Other: All systems not noted in ROS Statement are negative. <Dajuan Clement - Last Filed: 05/19/20 15:45> ROS Statement: Those systems with pertinent positive or pertinent negative responses have been documented in the HPI. Past Medical History Past Medical History: GERD/Reflux, Musculoskeletal Disorder, Thyroid Disorder Additional Past Medical History / Comment(s): Occasional PVC's. Seasonal allergies. HX THYROID PROB, NO CURRENT TX. LT KNEE PAIN, CREWS'S CYST. ENLARGED TONSILS History of Any Multi-Drug Resistant Organisms: None Reported Past Surgical History: Section, Tonsillectomy Additional Past Surgical History / Comment(s): C-S X2. Past Anesthesia/Blood Transfusion Reactions: Family History of Problems w/ Anesthesia, Motion Sickness Additional Past Anesthesia/Blood Transfusion Reaction / Comment(s): MOTHER HAD HX AGITATION AFTER ANESTHESIA. Past Psychological History: Anxiety Smoking Status: Never smoker Past Alcohol Use History: None Reported Past Drug Use History: None Reported - Past Family History Mother Family Medical History: Cancer <Jamarcus Kennedy - Last Filed: 05/19/20 14:34> General Exam Limitations: no limitations <Jamarcus Kennedy - Last Filed: 04/11/21 14:34> General appearance: alert, in no apparent distress Head exam: Present: atraumatic, normocephalic, normal inspection Eye exam: Present: normal appearance, PERRL, EOMI. Absent: scleral icterus, conjunctival injection, periorbital swelling ENT exam: Present: normal exam, mucous membranes moist Neck exam: Present: normal inspection. Absent: tenderness, meningismus, lymphadenopathy Respiratory exam: Present: normal lung sounds bilaterally. Absent: respiratory distress, wheezes, rales, rhonchi, stridor Cardiovascular Exam: Present: regular rate, normal rhythm, normal heart sounds. Absent: systolic murmur, diastolic murmur, rubs, gallop, clicks GI/Abdominal exam: Present: soft, normal bowel sounds. Absent: distended, tenderness, guarding, rebound, rigid <Dajuan Clement - Last Filed: 05/19/20 15:45> Course Vital Signs 05/19/20 13:13 Temperature 98.2 F Pulse Rate 73 Respiratory 20 Rate Blood Pressure 123/74 O2 Sat by Pulse 100 Oximetry Medical Decision Making <Dajuan Clement - Last Filed: 05/19/20 15:45> - Medical Decision Making I did reevaluate patient. No worsening symptoms. Respiratory distress. Antibody Infusion was ordered by previous physician. She is stable for discharge. (Dajuan Clement) - Lab Data Lab Results 05/19/20 Range/Units 13:16 Coronavirus (PCR) Detected A (Not Detectd) Disposition <Jamarcus Kennedy - Last Filed: 05/19/20 14:34> Is patient prescribed a controlled substance at d/c from ED?: No Time of Disposition: 15:33 <Dajuan Clement - Last Filed: 05/19/20 15:45> Clinical Impression: COVID-19 Disposition: HOME SELF-CARE Condition: Good Instructions (If sedation given, give patient instructions): Coronavirus Disease 2019 (COVID-19) Additional Instructions: Please take Motrin and Tylenol for pain. Follow-up with your doctor in one to 2 days. Return to the emergency room for any worsening symptoms. Referrals: Monique Myers MD [Primary Care Provider] - 1-2 days
[2020-05-19] MEDS ORDERED: BAMLANIVIMAB (EUA) 700 MG, ETESEVIMAB (EUA) 1,400 MG in SODIUM CHLORIDE 0.9% 50 ML IVPB ONE (16:30)
[2020-05-19 17:12] VITALS: BP 113/71; PULSE 67; TEMP 98.1
== END 2020-05-19 18:00 | disposition home or self-care (01) ==
LOC: EC 11:54
DX: U07.1 COVID-19 (principal); F41.9 Anxiety disorder, unspecified; K21.9 Gastro-esophageal reflux disease without esophagitis
CPT/HCPCS: 87635; 71045; 99284; 96374; Q0245

== ENCOUNTER 2022-09-14 09:53 | Inpatient (IN) | payer BC ==
[2022-09-14] MEDS ORDERED: ONDANSETRON 4 MG/2 ML VIAL IVP STA (10:28)
[2022-09-14] MEDS ORDERED: SODIUM CHLORIDE 0.9% 1,000 ML IV STA (10:28)
[2022-09-14] MEDS ORDERED: KETOROLAC 15 MG/ML 1 ML VIAL IVP STA (10:37)
[2022-09-14 10:39] LABS: Basophils % (A) 0 %; Eosinophils # (A) 0.1 k/uL (0-0.7); Eosinophils % (A) 1 %; HCT 41.3 % (34.0-46.0); HGB 14.6 gm/dL (11.4-16.0); Lymphocytes # (A) 0.7 k/uL (1.0-4.8); Lymphocytes % (A) 5 %; MCH 31.5 pg (25.0-35.0); MCHC 35.4 g/dL (31.0-37.0); Mean Platelet Volume 7.5; Monocytes # (A) 0.4 k/uL (0-1.0); Monocytes % (A) 2 %; Neutrophils # (A) 15.2 k/uL (1.3-7.7); Neutrophils % (A) 92 %; Platelet Count 235 k/uL (150-450); RBC 4.64 m/uL (3.80-5.40); RDW 12.9 % (11.5-15.5); WBC 16.5 k/uL (3.8-10.6)
[2022-09-14 10:52] LABS: ALT 26 U/L (4-34); AST 30 U/L (14-36); African American GFR (CKD) >90 (>60 ml/min/1.73 sqM); Albumin 4.6 g/dL (3.5-5.0); Alkaline Phosphatase 78 U/L (38-126); Amylase 55 U/L (30-110); Anion Gap 15 mmol/L; Blood Urea Nitrogen 13 mg/dL (7-17); Calcium 10.1 mg/dL (8.4-10.2); Carbon Dioxide 17 mmol/L (22-30); Chloride 103 mmol/L (98-107); Glucose 179 mg/dL (74-99); Lipase 187 U/L (23-300); Non-African American GFR(CKD) >90 (>60 ml/min/1.73 sqM); Potassium 3.5 mmol/L (3.5-5.1); Sodium 135 mmol/L (137-145); Total Protein 7.6 g/dL (6.3-8.2)
--- NOTE | 2022-09-14 11:22 | ED ---
General Adult HPI - General Chief complaint: Nausea/Vomiting/Diarrhea Stated complaint: vomiting Time Seen by Provider: 09/14/22 10:08 Source: patient Mode of arrival: ambulatory Limitations: no limitations - History of Present Illness Initial comments: 56-year-old female presents to ED with a chief complaint of nausea or vomiting. States since 5 AM this morning has had nausea, vomiting, and upper abdominal pain. No blood in the vomit. Pain is constant in nature and affects the epigastric/right upper abdomen. No relation to food as patient notes she has not ate since onset of this pain. Denies changes in bowel movements. Denies blood in his stool. Denies history of regular alcohol use. Denies hematuria or dysuria. Denies chest pain or shortness of breath. - Related Data Home Medications Medication Instructions Recorded Confirmed Cetirizine HCl [Zyrtec] 10 mg PO DAILY 09/14/22 09/14/22 Allergies Allergy/AdvReac Type Severity Reaction Status Date / Time latex Allergy TINGLING Verified 09/14/22 11:41 OF MOUTH/LIPS, RASH TO SKIN Milk Containing Products Allergy Abdominal Verified 09/14/22 11:41 [Dairy] Pain, DIARRHEA prednisone AdvReac "OCC Verified 09/14/22 11:41 CAUSES HEART TO RACE, FEEL MISERABLE" shellfish derived [Shellfish] AdvReac Unknown Verified 09/14/22 11:41 Review of Systems ROS Statement: Those systems with pertinent positive or pertinent negative responses have been documented in the HPI. ROS Other: All systems not noted in ROS Statement are negative. Past Medical History Past Medical History: GERD/Reflux, Musculoskeletal Disorder, Thyroid Disorder Additional Past Medical History / Comment(s): Occasional PVC's. Seasonal allergies. HX THYROID PROB, NO CURRENT TX. LT KNEE PAIN, CREWS'S CYST. ENLARGED TONSILS History of Any Multi-Drug Resistant Organisms: None Reported Past Surgical History: Section, Tonsillectomy Additional Past Surgical History / Comment(s): C-S X2. Past Anesthesia/Blood Transfusion Reactions: Family History of Problems w/ Anesthesia, Motion Sickness Additional Past Anesthesia/Blood Transfusion Reaction / Comment(s): MOTHER HAD HX AGITATION AFTER ANESTHESIA. Past Psychological History: Anxiety Smoking Status: Never smoker Past Alcohol Use History: None Reported Past Drug Use History: None Reported - Past Family History Mother Family Medical History: Cancer General Exam Limitations: no limitations General appearance: alert, in distress (Actively vomiting during examination.) Respiratory exam: Present: normal lung sounds bilaterally Cardiovascular Exam: Present: regular rate, normal rhythm GI/Abdominal exam: Present: soft, tenderness (Epigastric and right upper quadra nt tenderness to palpation. No rebound guarding or rigidity. Right CVA tenderness to percussion.) Neurological exam: Present: alert, oriented X3 Skin exam: Present: warm, dry Course Vital Signs 09/14/22 09/14/22 09/14/22 10:03 11:42 12:37 Temperature 98.5 F 97.8 F 98.2 F Pulse Rate 71 67 66 Respiratory 24 16 18 Rate Blood Pressure 126/79 114/56 119/75 O2 Sat by Pulse 99 96 95 Oximetry Medical Decision Making - Medical Decision Making Was pt. sent in by a medical professional or institution (, PA, TUBE DRAWER, urgent care, hospital, or longterm...) When possible be specific @ -No Did you speak to anyone other than the patient for history (EMS, parent, family, police, friend...)? What history was obtained from this source @ -No Did you review nursing and triage notes (agree or disagree)? Why? @ -I reviewed and agree with nursing and triage notes Were old charts reviewed (outside hosp., previous admission, EMS record, old EKG, old radiological studies, urgent care reports/EKG's, longterm records)? Report findings @ -No old charts were reviewed Differential Diagnosis (chest pain, altered mental status, abdominal pain women, abdominal pain men, vaginal bleeding, weakness, fever, dyspnea, syncope, headache, dizziness, GI bleed, back pain, seizure, CVA, palpatations, mental health, musculoskeletal)? @ -Differential Abdominal Pain Women: Appendicitis, Cholecystitis, diverticulosis, ischemic bowel, pancreatitis, hepatitis, UTI, gastroenteritis, AAA, incarcerated hernia, bowel obstruction, constipation, inflammatory bowel, hepatitis, peptic ulcer disease, splenic infarction, perforated viscus, vulvitis, ovarian torsion, PID, kidney stone, placenta abruption, this is not meant to be an all-inclusive list EKG interpreted by me (3pts min.). @ -As above X-rays interpreted by me (1pt min.). @ -None done CT interpreted by me (1pt min.). @ -CT showed ileus versus partial small bowel obstruction. U/S interpreted by me (1pt. min.). @ -None done What testing was considered but not performed or refused? (CT, X-rays, U/S, labs)? Why? @ -None What meds were considered but not given or refused? Why? @ -None Did you discuss the management of the patient with other professionals (gibson marie i.e. , PA, TUBE DRAWER, lab, RT, psych nurse, social services counselor, television antenna installer, teacher, founder chairman and chief creative officer, shoe parts caser)? Give summary @ -No Was smoking cessation discussed for >3mins.? @ -No Was critical care preformed (if so, how long)? @ -No Were there social determinants of health that impacted care today? How? (Homelessness, low income, unemployed, alcoholism, drug addiction, transpor tation, low edu. Level, literacy, decrease access to med. care, senior living, rehab)? @ -No Was there de-escalation of care discussed even if they declined (Discuss DNR or withdrawal of care, Hospice)? DNR status @ -No What co-morbidities impacted this encounter? (DM, HTN, Smoking, COPD, CAD, Cancer, CVA, ARF, Chemo, Hep., AIDS, mental health diagnosis, sleep apnea, morbid obesity)? @ -None Was patient admitted / discharged? Hospital course, mention meds given and route, prescriptions, significant lab abnormalities, going to OR and other pertinent info. @ -Admitted. Labs significant for an elevated white count at 16.5 otherwise unremarkable. Metabolic panel unremarkable. UA did show blood however no evidence of infection. CT showed possible ileus versus partial small bowel obstruction. Patient will be admitted with consult to surgery. At this time, symptoms are well controlled with Toradol and Zofran. Patient will be kept nothing by mouth. NG tube ordered. Panic care discussed with patient and family who are in agreement. Undiagnosed new problem with uncertain prognosis? @ -No Drug Therapy requiring intensive monitoring for toxicity (Heparin, Nitro, Insulin, Cardizem)? @ -No Were any procedures done? @ -No Diagnosis/symptom? @ -Ileus versus partial small bowel obstruction Acute, or Chronic, or Acute on Chronic? @ -Acute Uncomplicated (without systemic symptoms) or Complicated (systemic symptoms)? @ -Uncomplicated Side effects of treatment? @ -No Exacerbation, Progression, or Severe Exacerbation? @ -No Poses a threat to life or bodily function? How? (Chest pain, [place], NE, pneumonia, PE, COPD, DKA, ARF, appy, cholecystitis, CVA, Diverticulitis, Homicidal, Suicidal, threat to staff... and all critical care pts) @ -No - Lab Data Result diagrams: 09/14/22 10:29 09/14/22 10:29 Lab Results 09/14/22 09/14/22 09/14/22 Range/Units 03:39 10:29 10:29 WBC 16.5 H (3.8-10.6) k/uL RBC 4.64 (3.80-5.40) m/uL Hgb 14.6 (11.4-16.0) gm/dL Hct 41.3 (34.0-46.0) % MCV 89.0 (80.0-100.0) fL MCH 31.5 (25.0-35.0) pg MCHC 35.4 (31.0-37.0) g/dL RDW 12.9 (11.5-15.5) % Plt Count 235 (150-450) k/uL MPV 7.5 Neutrophils % 92 % Lymphocytes % 5 % Monocytes % 2 % Eosinophils % 1 % Basophils % 0 % Neutrophils # 15.2 H (1.3-7.7) k/uL Lymphocytes # 0.7 L (1.0-4.8) k/uL Monocytes # 0.4 (0-1.0) k/uL Eosinophils # 0.1 (0-0.7) k/uL Basophils # 0.0 (0-0.2) k/uL Sodium 135 L (137-145) mmol/L Potassium 3.5 (3.5-5.1) mmol/L Chloride 103 (98-107) mmol/L Carbon Dioxide 17 L (22-30) mmol/L Anion Gap 15 mmol/L BUN 13 (7-17) mg/dL Creatinine 0.56 (0.52-1.04) mg/dL Est GFR (CKD-EPI)AfAm >90 (>60 ml/min/1.73 sqM) Est GFR (CKD-EPI)NonAf >90 (>60 ml/min/1.73 sqM) Glucose 179 H (74-99) mg/dL Calcium 10.1 (8.4-10.2) mg/dL Total Bilirubin 1.0 (0.2-1.3) mg/dL AST 30 (14-36) U/L ALT 26 (4-34) U/L Alkaline Phosphatase 78 (38-126) U/L Troponin I (0.000-0.034) ng/mL Total Protein 7.6 (6.3-8.2) g/dL Albumin 4.6 (3.5-5.0) g/dL Amylase 55 (30-110) U/L Lipase 187 (23-300) U/L Urine Color Light Red Urine Appearance Clear (Clear) Urine pH 7.5 (5.0-8.0) Ur Specific Cylinder 1.024 (1.001-1.035) Urine Protein Trace H (Negative) Urine Glucose (UA) Negative (Negative) Urine Ketones 2+ H (Negative) Urine Blood Large H (Negative) Urine Nitrite Negative (Negative) Urine Bilirubin Negative (Negative) Urine Urobilinogen <2.0 (<2.0) mg/dL Ur Leukocyte Esterase Negative (Negative) Urine RBC >182 H (0-5) /hpf Urine WBC 3 (0-5) /hpf Ur Squamous Epith Cells 1 (0-4) /hpf Urine Bacteria Rare H (None) /hpf Urine Mucus Few H (None) /hpf Urine HCG, Qual (Not Detectd) 09/14/22 09/14/22 Range/Units 10:29 11:29 WBC (3.8-10.6) k/uL RBC (3.80-5.40) m/uL Hgb (11.4-16.0) gm/dL Hct (34.0-46.0) % MCV (80.0-100.0) fL MCH (25.0-35.0) pg MCHC (31.0-37.0) g/dL RDW (11.5-15.5) % Plt Count (150-450) k/uL MPV Neutrophils % % Lymphocytes % % Monocytes % % Eosinophils % % Basophils % % Neutrophils # (1.3-7.7) k/uL Lymphocytes # (1.0-4.8) k/uL Monocytes # (0-1.0) k/uL Eosinophils # (0-0.7) k/uL Basophils # (0-0.2) k/uL Sodium (137-145) mmol/L Potassium (3.5-5.1) mmol/L Chloride (98-107) mmol/L Carbon Dioxide (22-30) mmol/L Anion Gap mmol/L BUN (7-17) mg/dL Creatinine (0.52-1.04) mg/dL Est GFR (CKD-EPI)AfAm (>60 ml/min/1.73 sqM) Est GFR (CKD-EPI)NonAf (>60 ml/min/1.73 sqM) Glucose (74-99) mg/dL Calcium (8.4-10.2) mg/dL Total Bilirubin (0.2-1.3) mg/dL AST (14-36) U/L ALT (4-34) U/L Alkaline Phosphatase (38-126) U/L Troponin I <0.012 (0.000-0.034) ng/mL Total Protein (6.3-8.2) g/dL Albumin (3.5-5.0) g/dL Amylase (30-110) U/L Lipase (23-300) U/L Urine Color Urine Appearance (Clear) Urine pH (5.0-8.0) Ur Specific Cylinder (1.001-1.035) Urine Protein (Negative) Urine Glucose (UA) (Negative) Urine Ketones (Negative) Urine Blood (Negative) Urine Nitrite (Negative) Urine Bilirubin (Negative) Urine Urobilinogen (<2.0) mg/dL Ur Leukocyte Esterase (Negative) Urine RBC (0-5) /hpf Urine WBC (0-5) /hpf Ur Squamous Epith Cells (0-4) /hpf Urine Bacteria (None) /hpf Urine Mucus (None) /hpf Urine HCG, Qual Not Detected (Not Detectd) - EKG Data EKG Comments: EKG shows sinus bradycardia at 53 beats per minute without acute ST or T-wave changes. SC 194, QRS 103, QT/QTc 422/406. Disposition Clinical Impression: Ileus, SBO (small bowel obstruction) Disposition: ADMITTED IP TO THIS [facility] Condition: Good Time of Disposition: 12:00
--- NOTE | 2022-09-14 11:27 | CT ---
EXAMINATION TYPE: CT abdomen pelvis wo con DATE OF EXAM: 09/14/2022 COMPARISON: None INDICATION: Epigastric pain DLP: 1187 mGycm, Automated exposure control for dose reduction was used. CONTRAST: 0 mL of Isovue 300. Study performed without Oral Contrast TECHNIQUE: Axial images were obtained from above the diaphragm to the pubic rami in the axial plane a t 5 mm thick sections. Reconstructed images are reviewed on the computer in the coronal plane. FINDINGS: Limited CT sections are obtained the lung bases. The lung bases are clear. CT ABDOMEN: Liver: Normal Spleen: Normal Pancreas: Normal Adrenal glands: The adrenal glands are normal. Gallbladder: Normal Kidneys: No masses are evident. No hydronephrosis is present. No cysts are present. No renal stone s are evident. Aorta: Normal Inferior vena cava: Normal. CT PELVIS: There are fluid-filled somewhat prominent small bowel loops within the pelvis and abdomen. Terminal i leum contains fluid but appears to be partially decompressed. Correlate for ileus. Partial small brittnee l obstruction could be considered. No zone of transition is identified. Appendix: No previous small portion of the appendix is visualized appears normal. Appendix however is not visualized in its complete form. Clinical management is recommended. Urinary bladder: Normal. Genitourinary structures: Uterus and ovaries as visualized are normal Osseous structures: No suspicious lytic or sclerotic lesions. IMPRESSIONS: 1. Prominent fluid-filled small bowel loops extending to the distal ileum. Distal ileum is not diste nded. Clinical correlation recommended for ileus. Partial small bowel obstruction could be considered and follow-up is recommended.
[2022-09-14 11:46] LABS: Appearance,Urine Clear (Clear); Bacteria,Urine Rare /hpf; Bilirubin,Urine Negative (Negative); Blood,Urine Large (Negative); Color,Urine Light Red; Glucose,Urine (UA) Negative (Negative); Ketones,Urine 2+ (Negative); Leukocyte Esterase,Urine Negative (Negative); Mucus,Urine Few /hpf; Nitrite,Urine Negative (Negative); PH, Urine 7.5 (5.0-8.0); Protein,Urine Trace (Negative); RBC,Urine >182 /hpf (0-5); Specific Gravity,Urine 1.024 (1.001-1.035); Squamous Epithelial Cell,Urine 1 /hpf (0-4); Urobilinogen,Urine <2.0 mg/dL (<2.0); WBC,Urine 3 /hpf (0-5)
[2022-09-14] MEDS ORDERED: ACETAMINOPHEN TAB 325 MG TAB PO PRN (12:14)
[2022-09-14] MEDS ORDERED: HYDROmorphone 0.5 MG/0.5 ML SYRINGE IVP PRN (12:14)
[2022-09-14] MEDS ORDERED: HYDROmorphone 1 MG/ML 1 ML SYRINGE IVP PRN (12:14)
[2022-09-14] MEDS ORDERED: NALOXONE 0.4 MG/ML 1 ML VIAL IV PRN (12:14)
[2022-09-14] MEDS ORDERED: METOCLOPRAMIDE 5 MG/ML 2 ML VIAL IVP PRN (12:16)
[2022-09-14] MEDS: SODIUM CHLORIDE 0.9% 1,000 ML IV SCH (12:57)
[2022-09-14] MEDS ORDERED: KETOROLAC 15 MG/ML 1 ML VIAL IVP PRN (13:07)
[2022-09-14] MEDS ORDERED: ONDANSETRON 4 MG/2 ML VIAL IVP PRN (13:30)
--- NOTE | 2022-09-14 13:35 | P.GSCN ---
History of Present Illness Consult date: 09/14/22 History of present illness: CHIEF COMPLAINT: Abdominal pain HISTORY OF PRESENT ILLNESS: This is a 56-year-old female who presented with abdominal pain around 5:30 this morning. She reports that was located in the upper abdomen. She had multiple episodes of nausea and vomiting and it lasted for about 3 hours therefore she came into the ER for evaluation. She did have small amount of diarrhea this morning. She denies any prior history of bowel obstruction. She does report a history of 2 and a history of chronic diarrhea. Last colonoscopy 2 years ago reports as negative. She had a computed tomography scan abdomen and pelvis showed prominent fluid-filled small bowel loops distending to the distal ileum. Distal ileum is not distended. Clinical correlation recommended for ileus. Partial small bowel traction could be considered. Patient reports that the nausea and vomiting have improved after the antiemetics. And she does feel that she could possibly have a bowel movement at this time. PAST MEDICAL HISTORY: See below PAST SURGICAL HISTORY: See below MEDICATIONS: See below ALLERGIES: See below SOCIAL HISTORY: No illicit drug use. REVIEW OF SYSTEMS: CONSTITUTIONAL: Denies fever or chills. HEENT: Denies blurred vision, vision changes, or eye pain. Denies hemoptysis CARDIOVASCULAR: Denies chest pain or pressure. RESPIRATORY: No shortness of breath. GASTROINTESTINAL: See HPI for pertinent findings HEMATOLOGIC: Denies bleeding disorders. GENITOURINARY: Denies any blood in urine or increased urinary frequency. SKIN: Denies pruitis. Denies rash. PHYSICAL EXAM: VITAL SIGNS: Reviewed GENERAL: Well-developed in no acute distress. HEENT: No sclera icterus. Extraocular movements grossly intact. Moist buccal mucosa. Head is atraumatic, normocephalic. No nasal drainage. ABDOMEN: Soft. Nondistended. Tenderness with palpation in the epigastric area left side of the mid abdomen and lower right NEUROLOGIC: Alert and oriented. Cranial nerves II through XII grossly intact. LABORATORY DATA: WBC 16.5 Hgb 14.6 platelets 235 Sodium is 135 potassium is 3.5 creatinine 0.56 Lipase normal LFTs normal Urinalysis negative for infection. Does show a large amount of blood. Patient on menstrual cycle. IMAGING: Computed tomography scan abdomen as stated above ASSESSMENT: 1. Ileus versus partial small bowel obstruction. Abdominal pain with computed tomography scan showing prominent fluid-filled small bowel loops distending to the distal ileum. PLAN: -Computed tomography scan abdomen and pelvis with oral contrast will be ordered for further evaluation of patient's ileus persists partial small bowel discharge -Keep patient nothing by mouth -Continue to monitor -Recommend NG tube placement if patient has any further nausea and vomiting. -Continue IV fluids -Encourage patient to ambulate Physician Hand Collator note has been reviewed by physician. Signing provider agrees with the documented findings, assessment, and plan of care. Past Medical History Past Medical History: GERD/Reflux, Musculoskeletal Disorder, Thyroid Disorder Additional Past Medical History / Comment(s): Occasional PVC's. Seasonal allergies. HX THYROID PROB, NO CURRENT TX. LT KNEE PAIN, CREWS'S CYST. ENLARGED TONSILS History of Any Multi-Drug Resistant Organisms: None Reported Past Surgical History: Section, Tonsillectomy Additional Past Surgical History / Comment(s): C-S X2. Past Anesthesia/Blood Transfusion Reactions: Family History of Problems w/ Anesthesia, Motion Sickness Additional Past Anesthesia/Blood Transfusion Reaction / Comm: MOTHER HAD HX AGITATION AFTER ANESTHESIA. Past Psychological History: Anxiety Smoking Status: Never smoker Past Alcohol Use History: None Reported Past Drug Use History: None Reported - Past Family History Mother Family Medical History: Cancer Medications and Allergies Home Medications Medication Instructions Recorded Confirmed Type Cetirizine HCl [Zyrtec] 10 mg PO DAILY 09/14/22 09/14/22 History Allergies Allergy/AdvReac Type Severity Reaction Status Date / Time latex Allergy TINGLING Verified 09/14/22 11:41 OF MOUTH/LIPS, RASH TO SKIN Milk Containing Products Allergy Abdominal Verified 09/14/22 11:41 [Dairy] Pain, DIARRHEA prednisone AdvReac "OCC Verified 09/14/22 11:41 CAUSES HEART TO RACE, FEEL MISERABLE" shellfish derived [Shellfish] AdvReac Unknown Verified 09/14/22 11:41 Surgical - Exam Vital Signs Temp Pulse Resp BP Pulse Ox 98.5 F 71 24 126/79 99 09/14/22 10:03 09/14/22 10:03 09/14/22 10:03 09/14/22 10:03 09/14/22 10:03 Results - Labs 09/14/22 10:29 09/14/22 10:29 Abnormal Lab Results - Last 24 Hours (Table) 09/14/22 09/14/22 09/14/22 Range/Units 03:39 10:29 10:29 WBC 16.5 H (3.8-10.6) k/uL Neutrophils # 15.2 H (1.3-7.7) k/uL Lymphocytes # 0.7 L (1.0-4.8) k/uL Sodium 135 L (137-145) mmol/L Carbon Dioxide 17 L (22-30) mmol/L Glucose 179 H (74-99) mg/dL Urine Protein Trace H (Negative) Urine Ketones 2+ H (Negative) Urine Blood Large H (Negative) Urine RBC >182 H (0-5) /hpf Urine Bacteria Rare H (None) /hpf Urine Mucus Few H (None) /hpf Diabetes panel 09/14/22 Range/Units 10:29 Sodium 135 L (137-145) mmol/L Potassium 3.5 (3.5-5.1) mmol/L Chloride 103 (98-107) mmol/L Carbon Dioxide 17 L (22-30) mmol/L BUN 13 (7-17) mg/dL Creatinine 0.56 (0.52-1.04) mg/dL Glucose 179 H (74-99) mg/dL Calcium 10.1 (8.4-10.2) mg/dL AST 30 (14-36) U/L ALT 26 (4-34) U/L Alkaline Phosphatase 78 (38-126) U/L Total Protein 7.6 (6.3-8.2) g/dL Albumin 4.6 (3.5-5.0) g/dL Calcium panel 09/14/22 Range/Units 10:29 Calcium 10.1 (8.4-10.2) mg/dL Albumin 4.6 (3.5-5.0) g/dL Pituitary panel 09/14/22 Range/Units 10:29 Sodium 135 L (137-145) mmol/L Potassium 3.5 (3.5-5.1) mmol/L Chloride 103 (98-107) mmol/L Carbon Dioxide 17 L (22-30) mmol/L BUN 13 (7-17) mg/dL Creatinine 0.56 (0.52-1.04) mg/dL Glucose 179 H (74-99) mg/dL Calcium 10.1 (8.4-10.2) mg/dL Adrenal panel 08/07/23 Range/Units 10:29 Sodium 135 L (137-145) mmol/L Potassium 3.5 (3.5-5.1) mmol/L Chloride 103 (98-107) mmol/L Carbon Dioxide 17 L (22-30) mmol/L BUN 13 (7-17) mg/dL Creatinine 0.56 (0.52-1.04) mg/dL Glucose 179 H (74-99) mg/dL Calcium 10.1 (8.4-10.2) mg/dL Total Bilirubin 1.0 (0.2-1.3) mg/dL AST 30 (14-36) U/L ALT 26 (4-34) U/L Alkaline Phosphatase 78 (38-126) U/L Total Protein 7.6 (6.3-8.2) g/dL Albumin 4.6 (3.5-5.0) g/dL
[2022-09-14] MEDS ORDERED: IOPAMIDOL CONTRAST (ORAL USE) VIAL PO PRN (13:38)
--- NOTE | 2022-09-14 16:12 | CT ---
EXAMINATION TYPE: CT abdomen pelvis wo con DATE OF EXAM: 09/14/2022 COMPARISON: 09/14/2022 INDICATION: Abdominal pain. Ileus/SBO. Oral contrast only. DLP: 1177.4 mGycm, Automated exposure control for dose reduction was used. CONTRAST: 0 mL of Isovue 300. Study performed with Oral Contrast TECHNIQUE: Axial images were obtained from above the diaphragm to the pubic rami in the axial plane a t 5 mm thick sections. Reconstructed images are reviewed on the computer in the coronal plane. FINDINGS: Limited CT sections are obtained the lung bases. The lung bases are clear. CT ABDOMEN: Liver: Normal Spleen: Normal Pancreas: Normal Adrenal glands: The adrenal glands are normal. Gallbladder: Normal Kidneys: No masses are evident. No hydronephrosis is present. No cysts are present. No renal stone s are evident. Aorta: Normal Inferior vena cava: Normal. CT PELVIS: Minimal prominence of fluid-filled small bowel loops are evident. No zone of transition is evident. A ir and fluid is within the colon. Findings are likely related to ileus. Study is without oral contras t limiting bowel evaluation. Appendix: Not identified. No dilated tubular structure or inflammatory changes evident. Urinary bladder: Decompressed with limited evaluation Genitourinary structures: Uterus and ovaries appear within normal limits. Osseous structures: No suspicious lytic or sclerotic lesions. Small bone island may be within the low er sacrum anterior to the spinal canal. IMPRESSIONS: 1. Mild prominence of fluid-filled small bowel loops with air within the colon. Findings appear impr dahiana from exam earlier in the day. Ileus is favored within the differential.
[2022-09-14] MEDS ORDERED: HYDROcodone/APAP 5-325MG 1 EACH TAB PO PRN (16:18)
[2022-09-14] MEDS: PANTOPRAZOLE 40 MG/10 ML VIAL IVP SCH (18:10)
[2022-09-14] MEDS: HEPARIN SODIUM,PORCINE 5,000 UNIT/ML 1 ML VIAL SQ SCH (20:53)
[2022-09-15] MEDS: SODIUM CHLORIDE 0.9% 1,000 ML IV SCH ×2 (00:53→08:22)
--- NOTE | 2022-09-15 02:50 | HP ---
HISTORY AND PHYSICAL CHIEF COMPLAINT: Nausea, vomiting, and abdominal discomfort. HISTORY OF PRESENT ILLNESS: This is a 56-year-old woman with a past medical history of multiple medical issues, admitted with diffuse abdominal pain as well as nausea and vomiting. The patient has some loose bowel movements also. CT scan of abdomen showed mild prominent fluid-filled small bowel loops within the colon. Possible ileus is considered and surgery is also following the patient. There is no history of any fever, rigors, or chills. PAST MEDICAL HISTORY: Reviewed include thyroid disorders, rest of the history and rest of the chart is also reviewed. HOME MEDICATIONS: Reviewed include ALLERGIES: Latex, rest of the allergies noted. FAMILY HISTORY: History of cancer in the family. SOCIAL HISTORY: No history of smoking or alcohol. REVIEW OF SYSTEMS: A 14-point review is negative except as mentioned earlier. PHYSICAL EXAMINATION: VITAL SIGNS: Pulse is 68, blood pressure 97/60, respirations 18. HEENT: Conjunctivae normal. NECK: No jugular venous distention. CARDIOVASCULAR: S1, S2 muffled. RESPIRATION: Diminished at the basis. ABDOMEN: Soft, mild diffuse discomfort, mild diffuse distention present. Bowel sounds diminished. LEGS: No edema, no swelling. NERVOUS SYSTEM: No focal deficit. LABORATORY DATA: WBC 16.5. Rest of the labs and CT scan reports are noted. ASSESSMENT: 1. Abdominal distention, nausea, vomiting, possibly ileus versus partial small bowel obstruction. 2. Increased WBC. 3. Possible acute gastroenteritis. 4. Occasional PVCs. 6. Multiple medical issues. RECOMMENDATIONS: This 56-year-old woman presented with multiple complex medical issues, we will monitor the patient closely. Symptomatic treatment. medications, follow closely. DVT prophylaxis. Prognosis guarded because of multiple complex medical problems. See. Orders for details. MMODL / IJN: [id number] / MTDD
[2022-09-15] MEDS: HEPARIN SODIUM,PORCINE 5,000 UNIT/ML 1 ML VIAL SQ SCH ×2 (08:20→21:23)
[2022-09-15] MEDS: PANTOPRAZOLE 40 MG/10 ML VIAL IVP SCH (08:20)
[2022-09-15 10:56] LABS: ALT 16 U/L (8-44); AST 16 U/L (13-35); Albumin 3.5 d/dL (3.8-4.9); Albumin/Globulin Ratio 1.84 Ratio (1.60-3.17); Alkaline Phosphatase 49 U/L (41-126); BUN/Creat Ratio 14.86 Ratio (12.00-20.00); Blood Urea Nitrogen 10.4 mg/dL (9.0-27.0); Calcium 8.3 mg/dL (8.7-10.3); Carbon Dioxide 25.3 mmol/L (21.6-31.8); Chloride 107 mmol/L (96-109); Globulin 1.9 d/dL (1.6-3.3); Glucose 89 mg/dL (70-110); Potassium 3.4 mmol/L (3.5-5.5); Sodium 141 mmol/L (135-145); Total Bilirubin 0.8 mg/dL (0.3-1.2); Total Protein 5.4 d/dL (6.2-8.2)
[2022-09-15 10:58] LABS: Basophils # (A) 0.02 X 10*3/uL (0.00-0.10); Basophils % (A) 0.3 %; Eosinophils # (A) 0.12 X 10*3/uL (0.04-0.35); Eosinophils % (A) 1.7 %; HCT 32.9 % (37.2-46.3); HGB 11.2 d/dL (12.0-15.0); Lymphocytes # (A) 1.19 X 10*3/uL (0.90-5.00); MCH 31.4 pg (27.0-32.0); MCV 92.2 FL (80.0-97.0); Mean Platelet Volume 10.1 FL (9.5-12.2); Monocytes # (A) 0.48 X 10*3/uL (0.20-1.00); Monocytes % (A) 6.9 %; NRBC Per 100 WBC 0 X 10*3/uL (0.00-0.01); Neutrophils # (A) 5.17 X 10*3/uL (1.80-7.70); Platelet Count 192 X 10*3/uL (140-440); RBC 3.57 X 10*6/uL (4.10-5.20); RDW 12.8 % (11.5-14.5); WBC 6.99 X 10*3/uL (4.50-10.00)
[2022-09-15] MEDS ORDERED: LORATADINE 10 MG TAB PO SCH ×2 (13:30→21:00)
--- NOTE | 2022-09-15 16:08 | P.PN ---
Subjective Progress Note Date: 09/15/22 CHIEF COMPLAINT: Ileus HISTORY OF PRESENT ILLNESS: Patient reports that she's had multiple episodes of diarrhea and flatus. Denies any nausea or vomiting. Abdominal pain has decreased greatly. She reports the pain is on the left side and more of an achy pain and rates it just a 1 out of 10. Computed tomography scan of the abdomen and pelvis with oral contrast and showed mild prominence of fluid-filled small bowel loops with air within the colon. Findings improved from earlier in the day. Ileus is favored. Afebrile. WBC down from 16-6.9 potassium 3.4 medicine services added potassium to the IV fluids PHYSICAL EXAM: VITAL SIGNS: Reviewed. GENERAL: Well-developed in no acute distress. HEENT: No sclera icterus. Extraocular movements grossly intact. Moist buccal mucosa. Head is atraumatic, normocephalic. ABDOMEN: Soft. Nondistended. Nontender. NEUROLOGIC: Alert and oriented. Cranial nerves II through XII grossly intact. ASSESSMENT: 1. Ileus 2. Hypokalemia PLAN: -Start clear liquid diet and advanced to full liquids -Encourage patient to ambulate -Repeat potassium level in a.m. -Medicine service correcting low potassium Physician Application Technical Designer note has been reviewed by physician. Signing provider agrees with the documented findings, assessment, and plan of care. Objective - Vital Signs Vital signs: Vital Signs Temp 98.3 F 09/15/22 14:02 Pulse 53 L 09/15/22 14:02 Resp 18 09/15/22 14:02 BP 102/63 09/15/22 14:02 Pulse Ox 97 09/15/22 14:02 FiO2 Intake & Output 09/14/22 09/15/22 09/15/22 18:59 06:59 18:59 Intake Total 1200 Balance 1200 Weight 108.862 kg Intake: Intake, IV Titration 1200 Amount Sodium Chloride 0.9% 1, 1200 000 ml @ 100 mls/hr IV . Q10H THIAGO Rx#:[id number] Other: # Voids 1 2 # Bowel Movements 1 - Labs CBC & Chem 7: 09/15/22 05:40 09/15/22 05:40 Labs: Abnormal Lab Results - Last 24 Hours (Table) 09/15/22 09/15/22 Range/Units 05:40 05:40 RBC 3.57 L (4.10-5.20) X 10*6/uL Hgb 11.2 L (12.0-15.0) d/dL Hct 32.9 L (37.2-46.3) % Potassium 3.4 L (3.5-5.5) mmol/L Calcium 8.3 L (8.7-10.3) mg/dL Total Protein 5.4 L (6.2-8.2) d/dL Albumin 3.5 L (3.8-4.9) d/dL
--- NOTE | 2022-09-15 16:17 | PN ---
PROGRESS NOTE DATE OF SERVICE: 09/15/2022 SUBJECTIVE: This is a 56-year-old woman, who was admitted with possible partial small bowel obstruction that appears to be increasing. The patient has had a bowel movement today. No chest pain or palpitation. OBJECTIVE: VITAL SIGNS: Pulse 67, blood pressure 103/58, respirations 20. CHEST: Clear to auscultation. CARDIOVASCULAR: S1 and S2. ABDOMEN: Soft. Minimal distention. LABORATORY DATA: Reviewed. ASSESSMENT: 1. Abdominal distention, nausea, and vomiting, possibly ileus versus partial small bowel obstruction. 2. Increased WBC. 3. Possible acute gastroenteritis. 4. Occasional premature ventricular contractions history. 5. Multiple medical issues. RECOMMENDATIONS: Recommend to continue current medications. Continue symptomatic treatment. Repeat labs. Supplement potassium and magnesium. Monitor potassium and magnesium. Continue to monitor. Further recommendations to follow. MMODL / IJN: [id number] /
[2022-09-15] MEDS: 0.9% NACL WITH KCL 40 MEQ/L 1,000 ML IV SCH (16:29)
[2022-09-16] MEDS: 0.9% NACL WITH KCL 40 MEQ/L 1,000 ML IV SCH (05:47)
[2022-09-16 08:26] VITALS: PULSE 63; RESP 16
[2022-09-16] MEDS: HEPARIN SODIUM,PORCINE 5,000 UNIT/ML 1 ML VIAL SQ SCH (09:11)
[2022-09-16] MEDS: PANTOPRAZOLE 40 MG/10 ML VIAL IVP SCH (09:11)
[2022-09-16 09:41] LABS: Basophils # (A) 0.02 X 10*3/uL (0.00-0.10); Basophils % (A) 0.4 %; Blood Urea Nitrogen 3.8 mg/dL (9.0-27.0); Calcium 8.5 mg/dL (8.7-10.3); Chloride 110 mmol/L (96-109); Eosinophils # (A) 0.08 X 10*3/uL (0.04-0.35); Eosinophils % (A) 1.5 %; Glucose 93 mg/dL (70-110); HGB 10.8 d/dL (12.0-15.0); Lymphocytes # (A) 1.25 X 10*3/uL (0.90-5.00); Lymphocytes % (A) 22.7 %; MCH 31.7 pg (27.0-32.0); MCHC 34.8 d/dL (32.0-37.0); MCV 90.9 FL (80.0-97.0); Mean Platelet Volume 9.9 FL (9.5-12.2); Monocytes # (A) 0.34 X 10*3/uL (0.20-1.00); Monocytes % (A) 6.2 %; NRBC Per 100 WBC 0 X 10*3/uL (0.00-0.01); Platelet Count 183 X 10*3/uL (140-440); Potassium 3.4 mmol/L (3.5-5.5); RBC 3.41 X 10*6/uL (4.10-5.20); RDW 12.7 % (11.5-14.5); Sodium 142 mmol/L (135-145)
[2022-09-16] MEDS ORDERED: POTASSIUM CHLORIDE ER 20 MEQ TAB.ER PO STA (10:13)
[2022-09-16 13:08] VITALS: BP 127/79; TEMP 98.6
--- NOTE | 2022-09-16 13:49 | P.PN ---
Subjective Progress Note Date: 09/16/22 CHIEF COMPLAINT: Ileus HISTORY OF PRESENT ILLNESS: Patient does report some abdominal bloating. She has been having bowel movements and flatus. She tolerated the full liquids. But is limited due to being unable to eat lactulose foods. Afebrile. WBC 5.50 should be 10.8 potassium is 3.4 creatinine 0.5 PHYSICAL EXAM: VITAL SIGNS: Reviewed. GENERAL: Well-developed in no acute distress. HEENT: No sclera icterus. Extraocular movements grossly intact. Moist buccal mucosa. Head is atraumatic, normocephalic. ABDOMEN: Soft. Nondistended. Nontender. NEUROLOGIC: Alert and oriented. Cranial nerves II through XII grossly intact. ASSESSMENT: 1. Ileus resolved 2. Hypokalemia PLAN: -advance diet to low fiber, lactose free foods -Medicine service has ordered a potassium supplement -Patient can be discharged later today if tolerating diet Physician Pen Tester note has been reviewed by physician. Signing provider agrees with the documented findings, assessment, and plan of care. Objective - Vital Signs Vital signs: Vital Signs Temp 99.3 F 09/16/22 08:00 Pulse 63 09/16/22 08:00 Resp 16 09/16/22 08:00 BP 120/73 09/16/22 08:00 Pulse Ox 94 L 09/16/22 08:00 FiO2 Intake & Output 09/15/22 09/16/22 09/16/22 18:59 06:59 18:59 Intake Total 600 Balance 600 Intake: Oral 600 Other: # Voids 2 - Labs CBC & Chem 7: 09/16/22 06:44 09/16/22 06:44 Labs: Abnormal Lab Results - Last 24 Hours (Table) 09/15/22 09/15/22 09/16/22 Range/Units 05:40 05:40 06:44 RBC 3.57 L 3.41 L (4.10-5.20) X 10*6/uL Hgb 11.2 L 10.8 L (12.0-15.0) d/dL Hct 32.9 L 31.0 L (37.2-46.3) % Potassium 3.4 L (3.5-5.5) mmol/L Chloride (96-109) mmol/L BUN (9.0-27.0) mg/dL Creatinine (0.6-1.5) mg/dL BUN/Creatinine Ratio (12.00-20.00) Ratio Calcium 8.3 L (8.7-10.3) mg/dL Total Protein 5.4 L (6.2-8.2) d/dL Albumin 3.5 L (3.8-4.9) d/dL 09/16/22 Range/Units 06:44 RBC (4.10-5.20) X 10*6/uL Hgb (12.0-15.0) d/dL Hct (37.2-46.3) % Potassium 3.4 L (3.5-5.5) mmol/L Chloride 110 H (96-109) mmol/L BUN 3.8 L (9.0-27.0) mg/dL Creatinine 0.5 L (0.6-1.5) mg/dL BUN/Creatinine Ratio 7.60 L (12.00-20.00) Ratio Calcium 8.5 L (8.7-10.3) mg/dL Total Protein (6.2-8.2) d/dL Albumin (3.8-4.9) d/dL Microbiology - Last 24 Hours (Table) 09/14/22 17:01 Blood Culture - Preliminary Blood
--- NOTE | 2022-09-17 13:48 | P.DS ---
Providers Date of admission: 09/14/22 12:22 Expected date of discharge: 09/16/22 Attending physician: Mkie Cm MD Consults: 09/14/22 12:14 Consult Physician Urgent Consulting Provider: Marty You Consult Reason/Comments: Ileus/Partial SBO Do you want consulting provider notified?: Yes Primary care physician: Monique Myers Hospital Course: Final diagnosis Abdominal distention, nausea and vomiting likely ileus versus small bowel obstruction Leukocytosis, secondary to above Possible acute gastroenteritis Occasional PVC history Obesity with a BMI of 39.9 History of GERD History of thyroid disorder History of anxiety GI prophylaxis DVT prophylaxis Full code Discharge disposition Patient is being discharged in a stable condition with guarded prognosis to home. Patient will follow-up with Dr. Myers in the outpatient setting upon discharge. Patient is to continue on current diet per surgery recommendations and outpatient follow-up with surgery as scheduled. Total time taken is greater than 35 minutes. Hospital course This is a 56-year-old female who was recently admitted with abdominal pain with concerns of partial small bowel obstruction versus ileus. Patient was able to have bowel movements and is having some loose stools although somewhat more formed and less frequent today. Patient tolerating diet and extremely anxious about wanting to go home. Discussed with surgery patient tolerating diet patient will be able to go home with close outpatient follow-up. Please refer to the consultation notes for further HPI. Patient instructed to continue current diet and slowly advance as tolerated. Currently no reports of chest pain, shortness of breath, or palpitations. Patient is afebrile. No reports of nausea or vomiting and patient is tolerating diet. Patient will be discharged home today. Guarded prognosis. Physical exam: Gen: This is a 56-year-old female who is awake, alert and oriented 3, well- developed, well-nourished, obese HEENT: Head is atraumatic, normocephalic. Pupils equal, round. Sclerae is anicteric. NECK: Supple. No JVD. No lymphadenopathy. No thyromegaly. LUNGS: Diminished breath sounds bilaterally with no wheezes or rhonchi. No intercostal retractions. HEART: S1, S2 are muffled ABDOMEN: Soft. Obese Bowel sounds are present. No masses. Upper left and right quadrant tenderness on palpation, slightly improved. EXTREMITIES: No pedal edema. No calf tenderness. NEUROLOGICAL: Patient is awake, alert and oriented x3. Cranial nerves 2 through 12 are grossly intact. Please refer to medication reconciliation sheet for a list of medications. The impression and plan of care has been dictated by Sudha Hernandez, Nurse Practitioner as directed. Dr. Marco A MD I have performed a history and examination and MDM of this patient, discussed the same with the dictator, and agree with the dictator's assessment and plan as written ,documented as a scribe. Based on total visit time, I have performed more than 50% of the visit. Patient Condition at Discharge: Good Plan - Discharge Summary Discharge Rx Participant: No New Discharge Prescriptions: New Ciprofloxacin HCl [Cipro] 500 mg PO BID 5 Days #10 tab metroNIDAZOLE [Flagyl] 500 mg PO TID 5 Days #15 tab Acetaminophen Tab [Tylenol] 650 mg PO Q6HR PRN tab PRN Reason: Mild Pain Or Fever > 100.5 Pantoprazole [Protonix] 40 mg PO DAILY 15 Days #15 tab Continue Cetirizine HCl [Zyrtec] 10 mg PO DAILY Discharge Medication List Cetirizine HCl [Zyrtec] 10 mg PO DAILY 09/14/22 [History] Acetaminophen Tab [Tylenol] 650 mg PO Q6HR PRN tab 09/16/22 [Rx] Ciprofloxacin HCl [Cipro] 500 mg PO BID 5 Days #10 tab 09/16/22 [Rx] Pantoprazole [Protonix] 40 mg PO DAILY 15 Days #15 tab 09/16/22 [Rx] metroNIDAZOLE [Flagyl] 500 mg PO TID 5 Days #15 tab 09/16/22 [Rx] Follow up Appointment(s)/Referral(s): Monique Myers MD [Primary Care Provider] - 1-2 days (Patient needs to make a follow up appointment with Dr. Myers.) Marty You MD [STAFF PHYSICIAN] - 1 Week (Patient needs to make a follow up appointment with Dr. You.) Patient Instructions/Handouts: Low Fiber Diet (DC), Full Liquid Diet (DC) Activity/Diet/Wound Care/Special Instructions: Activity Limited until follow-up Follow-up with primary care provider on discharge Follow-up with general surgery outpatient Continue full liquids and slowly advance to low fiber over the next few days Discharge Disposition: HOME SELF-CARE
== END 2022-09-16 15:18 | disposition home or self-care (01) | DRG 390 ==
LOC: EC 09:53 → 5NMEDONC 12:22
PROVIDERS: ADMIT Internal Medicine; ATTEND Internal Medicine
DX: K56.7 Ileus, unspecified (principal); E66.9 Obesity, unspecified; E07.9 Disorder of thyroid, unspecified; K21.9 Gastro-esophageal reflux disease without esophagitis; I49.3 Ventricular premature depolarization; K52.9 Noninfective gastroenteritis and colitis, unspecified; E87.6 Hypokalemia; F41.9 Anxiety disorder, unspecified; Z68.39 Body mass index [BMI] 39.0-39.9, adult; Z91.040 Latex allergy status; Z91.011 Allergy to milk products; Z88.8 Allergy status to other drugs, medicaments and biological substances; Z91.013 Allergy to seafood; Z79.899 Other long term (current) drug therapy
CPT/HCPCS: 36415; 74176; 80048; 80053; 81001; 81025; 82150; 83690; 84145; 84484; 85025; 87040; 87045; 87046; 93005; 96361; 96374; 96375; 99285

== ENCOUNTER 2024-04-10 04:22 | Inpatient (IN) | payer BC ==
[2024-04-10] MEDS: ONDANSETRON 4 MG/2 ML VIAL IVP STA ×2 (04:48→05:49)
[2024-04-10] MEDS: SODIUM CHLORIDE 0.9% 1,000 ML IV ONE ×2 (04:49→05:49)
[2024-04-10 05:10] LABS: Basophils # (A) 0.1 k/uL (0-0.2); Basophils % (A) 0 %; Eosinophils # (A) 0.1 k/uL (0-0.7); Eosinophils % (A) 1 %; HCT 44.6 % (34.0-46.0); Lymphocytes # (A) 1.4 k/uL (1.0-4.8); Lymphocytes % (A) 10 %; MCH 30.1 pg (25.0-35.0); MCHC 33.7 g/dL (31.0-37.0); MCV 89.5 fL (80.0-100.0); Mean Platelet Volume 7.4; Monocytes # (A) 0.5 k/uL (0-1.0); Monocytes % (A) 4 %; Neutrophils # (A) 12.4 k/uL (1.3-7.7); Neutrophils % (A) 85 %; Platelet Count 323 k/uL (150-450); RBC 4.99 m/uL (3.80-5.40); RDW 12.4 % (11.5-15.5); WBC 14.6 k/uL (3.8-10.6)
--- NOTE | 2024-04-10 05:41 | ED ---
General Adult HPI - General Chief complaint: Abdominal Pain Stated complaint: Abd pain, vomiting Time Seen by Provider: 04/10/24 04:41 Source: patient Mode of arrival: wheelchair Limitations: no limitations - History of Present Illness Initial comments: Patient is a pleasant 58 y/o female PMH GERD, prior C section, presenting today for epigastric abdominal pain, nausea and vomiting. Pt states when she had these symptoms in the past she was admitted for an ileus. Has been having LUQ and epigastric abdominal pain intermittently over the course of the last 2 weeks. States she was seen at an urgent care and they did a "breath test" and was told it was normal. Last night began having sharp epigastric abdominal pain different from the pain she has been having over the last 2 weeks and had an episode of nonbloody nonbilious emesis. States she had a small hard bowel movement last night when she typically has loose stools. Denies melena or hematochezia. Endorses chills but denies fevers. Denies chest pain or shortness of breath. Denies dysuria or hematuria. Denies vaginal bleeding or vaginal discharge. - Related Data Home Medications Medication Instructions Recorded Confirmed Cetirizine HCl [Zyrtec] 20 mg PO HS 09/14/22 04/10/24 Ibuprofen [Motrin Ib] 600 - 800 mg PO Q6H PRN 04/10/24 04/10/24 Allergies Allergy/AdvReac Type Severity Reaction Status Date / Time banana Allergy Unknown Verified 04/10/24 08:37 bee venom protein (honey bee) Allergy Unknown Verified 04/10/24 08:37 latex Allergy TINGLING Verified 04/10/24 08:37 OF MOUTH/LIPS, RASH TO SKIN shellfish derived [Shellfish] Allergy Unknown Verified 04/10/24 08:37 tree nut [Nut] Allergy Unknown Verified 04/10/24 08:37 Milk Containing Products AdvReac Abdominal Verified 04/10/24 08:37 (Dairy) Pain, [Dairy] DIARRHEA prednisone AdvReac "OCC Verified 04/10/24 08:37 CAUSES HEART TO RACE, FEEL MISERABLE" Review of Systems ROS Statement: Those systems with pertinent positive or pertinent negative responses have been documented in the HPI. ROS Other: All systems not noted in ROS Statement are negative. Past Medical History Past Medical History: GERD/Reflux, Musculoskeletal Disorder, Thyroid Disorder Additional Past Medical History / Comment(s): Occasional PVC's. Seasonal allergies. HX THYROID PROB, NO CURRENT TX. LT KNEE PAIN, CREWS'S CYST. History of Any Multi-Drug Resistant Organisms: None Reported Past Surgical History: Section, Tonsillectomy Additional Past Surgical History / Comment(s): C-S X2. carpel tunnel Past Anesthesia/Blood Transfusion Reactions: Family History of Problems w/ Anesthesia, Motion Sickness Additional Past Anesthesia/Blood Transfusion Reaction / Comment(s): MOTHER HAD HX AGITATION AFTER ANESTHESIA. Past Psychological History: Anxiety Smoking Status: Never smoker Past Alcohol Use History: Rare - Past Family History Mother Family Medical History: Cancer Additional Family Medical History / Comment(s): from lung CA at age 74, and a history of colon CA as well. Father Family Medical History: Myocardial Infarction (CO) Additional Family Medical History / Comment(s): perforated ulcer, several CO's. from CO at age 81 or 82. General Exam - General Exam Comments Initial Comments: PE: CONSTITUTIONAL: No apparent distress, ill-appearing, nontoxic SKIN: Warm, dry, no jaundice, hives or petechiae EYES: Pupils are equally round, extraocular movements intact without nystagmus, clear conjunctiva, non-icteric sclera HENT: Normocephalic, atraumatic, moist mucus membranes, oropharynx clear without exudates NECK: , Full range of motion, normal appearance PULMONARY: Clear to auscultation without wheezes, rhonchi, or rales, normal excursion, no accessory muscle use and no stridor CARDIOVASCULAR: Regular rate, rhythm, normal S1 and S2. No appreciated murmurs, rubs or gallops. Strong radial pulses with intact distal perfusion. No lower extremity edema GASTROINTESTINAL: Soft, hypoactive bowel sounds, diffusely tender however predominantly tender in the epigastrium, mildly distended, no palpable masses, no rebound. Guarding with palpation of the epigastrium. No hepatosplenomegaly MUSCULOSKELETAL: Extremities have no gross deformity NEUROLOGIC:_a/o x 3, GCS 15, normal mentation and speech. Moves all extremities x 4 without motor or sensory deficit PSYCHIATRIC:_normal mood and affect, thought process is clear and linear Limitations: no limitations Course Vital Signs 04/10/24 04/10/24 04/10/24 04:27 07:42 09:00 Temperature 97.4 F L Pulse Rate 76 79 70 Respiratory 26 H 18 18 Rate Blood Pressure 127/78 118/56 132/44 O2 Sat by Pulse 99 93 L 93 L Oximetry 04/10/24 04/10/24 04/10/24 09:43 11:00 13:23 Temperature 97.3 F L 98.4 F Pulse Rate 72 63 Respiratory 16 16 Rate Blood Pressure 110/54 118/58 O2 Sat by Pulse 95 100 Oximetry 04/10/24 04/10/24 04/10/24 15:00 17:02 17:48 Temperature Pulse Rate 71 64 77 Respiratory 18 18 18 Rate Blood Pressure 104/60 104/60 112/69 O2 Sat by Pulse 96 96 98 Oximetry Medical Decision Making - Medical Decision Making Was pt. sent in by a medical professional or institution (, PA, GENERALIST, urgent care, hospital, or [place] [facility] facility...) When possible be specific @ -No Did you speak to anyone other than the patient for history (EMS, parent, family, police, friend...)? What history was obtained from this source @ -No Did you review nursing and triage notes (agree or disagree)? Why? @ -I reviewed nursing and triage notes-Triage note states patient presenting for nausea, vomiting abdominal pain intermittently for last 2 weeks worse tonight, patient states to me that abdominal pain tonight is different from what she has had over the last 2 weeks Were old charts reviewed (outside hosp., previous admission, EMS record, old EKG, old radiological studies, urgent care reports/EKG's, [place] [facility] facility records)? Report findings @ -Medical records reviewed-Reviewed CT abdomen pelvis on 09/14/2022, showed findings consistent with ileus Differential Diagnosis (chest pain, altered mental status, abdominal pain women, abdominal pain men, vaginal bleeding, weakness, fever, dyspnea, syncope, headache, dizziness, GI bleed, back pain, seizure, CVA, palpatations, mental health, musculoskeletal)? Differential Abdominal Pain Women: Appendicitis, Cholecystitis, diverticulosis, ischemic bowel, pancreatitis, hepatitis, UTI, gastroenteritis, AAA, incarcerated hernia, bowel obstruction, constipation, inflammatory bowel, hepatitis, peptic ulcer disease, splenic infarction, perforated viscus, vulvitis, ovarian torsion, kidney stone this is not meant to be an all-inclusive list EKG interpreted by me (3pts min.). @ -As above X-rays interpreted by me (1pt min.). @ -None done CT interpreted by me (1pt min.). @ -I personally reviewed CT abdomen pelvis, appears to show fluid filled bowel l oops with bowel wall thickening, air-fluid levels consistent with small bowel obstruction, I see no free air or free fluid in the abdomen to indicate perforation, I agree with radiologist interpretation U/S interpreted by me (1pt. min.). @ -None done What testing was considered but not performed or refused? (CT, X-rays, U/S, labs)? Why? @ -None What meds were considered but not given or refused? Why? @ -None Did you discuss the management of the patient with other professionals (professionals i.e. , PA, GENERALIST, lab, RT, psych nurse, geriatric social work professor, printing plate clerk, teacher, flight deck officer, director of casework)? Give summary @This case was discussed with Dr. Esquivel, general cereals really, appreciate recs, agrees w/ NG tube insertion, will see Was smoking cessation discussed for >3mins.? @ -No Was critical care preformed (if so, how long)? @ -No Were there social determinants of health that impacted care today? How? (Homelessness, low income, unemployed, alcoholism, drug addiction, transportation, low edu. Level, literacy, decrease access to med. care, nursing home, rehab)? @ -No Was there de-escalation of care discussed even if they declined (Discuss DNR or withdrawal of care, Hospice)? @ -No What co-morbidities impacted this encounter? (DM, HTN, Smoking, COPD, CAD, Cancer, CVA, ARF, Chemo, Hep., AIDS, mental health diagnosis, sleep apnea, morbid obesity)? @GERD Was patient admitted / discharged? Hospital course, mention meds given and route, prescriptions, significant lab abnormalities, going to OR and other pertinent info. @ Admission- This is a pleasant 58 y.o female presenting today for abdominal pain nausea and vomiting. States feels like when she previously had an ileus. Vital signs on arrival show mild tachypnea, respiratory rate 26, blood pressure 127/78, pulse ox 99%, pulse 76 bpm temp 97.4 degrees. I suspect tachypnea secondary to nausea, vomiting and abdominal pain. On my assessment she is in no acute distress, somewhat ill-appearing though nontoxic. Abdomen is mildly dis tended, with hypoactive bowel sounds and tenderness to palpation of the epigastrium. Discussed with patient basic labs, pain control, fluids and CT abdomen pelvis. CT abdomen pelvis showed findings consistent with small bowel obstruction. Labs show mild leukocytosis and lactic 3. Though pt does meet SIRS criteria, I suspect these findings are secondary to SBO as opposed to acute infectious process so sepsis bundle was not initiated. Case was discussed with Dr. Esquivel, please see rec's above. Updated patient to findings and plan for admission. Patient agreeable plan of care. Case discussed with ABELARDO Levy kindly accept patient for admission. Undiagnosed new problem with uncertain prognosis? @ -No Drug Therapy requiring intensive monitoring for toxicity (Heparin, Nitro, Insulin, Cardizem)? @ -No Were any procedures done? @ -No Diagnosis/symptom? @ Small Bowel obstruction Acute, or Chronic, or Acute on Chronic? @acute Uncomplicated (without systemic symptoms) or Complicated (systemic symptoms)? complicated Side effects of treatment? @ -No Exacerbation, Progression, or Severe Exacerbation? @ -No Poses a threat to life or bodily function? How? (Chest pain, USA, CO, pneumonia, PE, COPD, DKA, ARF, appy, cholecystitis, CVA, Diverticulitis, Homicidal, Suicidal, threat to staff... and all critical care pts) @ yes, if left untreated could lead to perforation and sepsis/septic shock - Lab Data Result diagrams: 04/10/24 04:37 04/10/24 04:37 Lab Results 04/10/24 04/10/24 04/10/24 Range/Units 04:37 04:37 04:37 WBC 14.6 H (3.8-10.6) k/uL RBC 4.99 (3.80-5.40) m/uL Hgb 15.0 (11.4-16.0) gm/dL Hct 44.6 (34.0-46.0) % MCV 89.5 (80.0-100.0) fL MCH 30.1 (25.0-35.0) pg MCHC 33.7 (31.0-37.0) g/dL RDW 12.4 (11.5-15.5) % Plt Count 323 (150-450) k/uL MPV 7.4 Neutrophils % 85 % Lymphocytes % 10 % Monocytes % 4 % Eosinophils % 1 % Basophils % 0 % Neutrophils # 12.4 H (1.3-7.7) k/uL Lymphocytes # 1.4 (1.0-4.8) k/uL Monocytes # 0.5 (0-1.0) k/uL Eosinophils # 0.1 (0-0.7) k/uL Basophils # 0.1 (0-0.2) k/uL Sodium 135 L (137-145) mmol/L Potassium 4.5 (3.5-5.1) mmol/L Chloride 102 (98-107) mmol/L Carbon Dioxide 15 L (22-30) mmol/L Anion Gap 18 mmol/L BUN 16 (7-17) mg/dL Creatinine 0.60 (0.52-1.04) mg/dL Est GFR (CKD-EPI)AfAm >90 (>60 ml/min/1.73 sqM) Est GFR (CKD-EPI)NonAf >90 (>60 ml/min/1.73 sqM) Glucose 158 H (74-99) mg/dL Lactic Ac Sepsis Rflx Plasma Lactic Acid North 3.0 H* (0.7-2.0) mmol/L Calcium 10.1 (8.4-10.2) mg/dL Total Bilirubin 1.4 H (0.2-1.3) mg/dL AST 34 (14-36) U/L ALT 22 (4-34) U/L Alkaline Phosphatase 61 (38-126) U/L Total Protein 8.3 H (6.3-8.2) g/dL Albumin 5.0 (3.5-5.0) g/dL Amylase 51 (30-110) U/L Lipase 152 (23-300) U/L Influenza Type A (PCR) (Not Detectd) Influenza Type B (PCR) (Not Detectd) RSV (PCR) (Not Detectd) SARS-CoV-2 (PCR) (Not Detectd) 04/10/24 04/10/24 Range/Units 05:09 05:54 WBC (3.8-10.6) k/uL RBC (3.80-5.40) m/uL Hgb (11.4-16.0) gm/dL Hct (34.0-46.0) % MCV (80.0-100.0) fL MCH (25.0-35.0) pg MCHC (31.0-37.0) g/dL RDW (11.5-15.5) % Plt Count (150-450) k/uL MPV Neutrophils % % Lymphocytes % % Monocytes % % Eosinophils % % Basophils % % Neutrophils # (1.3-7.7) k/uL Lymphocytes # (1.0-4.8) k/uL Monocytes # (0-1.0) k/uL Eosinophils # (0-0.7) k/uL Basophils # (0-0.2) k/uL Sodium (137-145) mmol/L Potassium (3.5-5.1) mmol/L Chloride (98-107) mmol/L Carbon Dioxide (22-30) mmol/L Anion Gap mmol/L BUN (7-17) mg/dL Creatinine (0.52-1.04) mg/dL Est GFR (CKD-EPI)AfAm (>60 ml/min/1.73 sqM) Est GFR (CKD-EPI)NonAf (>60 ml/min/1.73 sqM) Glucose (74-99) mg/dL Lactic Ac Sepsis Rflx Y Plasma Lactic Acid North (0.7-2.0) mmol/L Calcium (8.4-10.2) mg/dL Total Bilirubin (0.2-1.3) mg/dL AST (14-36) U/L ALT (4-34) U/L Alkaline Phosphatase (38-126) U/L Total Protein (6.3-8.2) g/dL Albumin (3.5-5.0) g/dL Amylase (30-110) U/L Lipase (23-300) U/L Influenza Type A (PCR) Not Detected (Not Detectd) Influenza Type B (PCR) Not Detected (Not Detectd) RSV (PCR) Not Detected (Not Detectd) SARS-CoV-2 (PCR) Not Detected (Not Detectd) Disposition Clinical Impression: Small bowel obstruction Disposition: ADMITTED IP TO THIS HOSP Condition: Stable
[2024-04-10] MEDS: MORPHINE SULFATE 4 MG/ML SYRINGE IVP STA (05:48)
[2024-04-10 06:01] LABS: Influenza A Not Detected (Not Detectd); Influenza B Not Detected (Not Detectd); RSV Not Detected (Not Detectd)
--- NOTE | 2024-04-10 06:21 | CT ---
EXAM: CT Abdomen and Pelvis Without Intravenous Contrast CLINICAL HISTORY: ITS.REASON CT Reason: Epigastric pain, vomit. hx ileus TECHNIQUE: Axial computed tomography images of the abdomen and pelvis without intravenous contrast. CTDI is 23 mGy and DLP is 1400 mGy-cm. This CT exam was performed using one or more of the following dose reduction techniques: automated exposure control, adj in thickness on a 1 second no evidence of any ustment of the mA and/or kV according to patient size, and/or use of iterative reconstruction technique. COMPARISON: No relevant prior studies available. FINDINGS: Limitations: Limited evaluation in the absence of contrast. Lung bases: Unremarkable. No mass. No consolidation. ABDOMEN: Liver: Unremarkable. Gallbladder and bile ducts: Unremarkable. No calcified stones. No ductal dilation. Pancreas: Unremarkable. No ductal dilation. Spleen: Unremarkable. No splenomegaly. Adrenals: Unremarkable. No mass. Kidneys and ureters: No evidence of radiopaque renal calculi or signs of collecting system dilatation. Stomach and bowel: Mild dilatation of multiple loops of small bowel measuring up to 3.8 cm. Findings are favored to relate to developing small bowel obstruction. Transition point is poorly identified but suspected be within the pelvis (series 201 image 122). Submucosal fat deposition within the distal ileum which may be due to chronic inflammation. Enlarged body habitus, amongst other etiologies, also possible. PELVIS: Appendix: The appendix is not definitely identified without gross findings to suggest appendicitis. Bladder: Unremarkable. No stones. Reproductive: Unremarkable as visualized. ABDOMEN and PELVIS: Intraperitoneal space: No evidence of pneumatosis, portal venous gas, or free air. No significant fluid collection. Bones/joints: No acute fracture. No dislocation. Soft tissues: Unremarkable. Vasculature: Unremarkable. No abdominal aortic aneurysm. Lymph nodes: Unremarkable. No enlarged lymph nodes. IMPRESSION: 1. Limited evaluation in the absence of contrast. 2. No evidence of radiopaque renal calculi or signs of collecting system dilatation. 3. Mild dilatation of multiple loops of small bowel measuring up to 3.8 cm. Findings are favored to relate to developing small bowel obstruction. Transition point is poorly identified but suspected be within the pelvis (series 201 image 122). 4. No evidence of pneumatosis, portal venous gas, or free air. 5. Submucosal fat deposition within the distal ileum which may be due to chronic inflammation. Enlarged body habitus, amongst other etiologies, also possible. 6. No other acute findings. 7. Incidental findings as described.
[2024-04-10] MEDS ORDERED: ACETAMINOPHEN TAB 325 MG TAB PO PRN (06:39)
[2024-04-10] MEDS ORDERED: NALOXONE 0.4 MG/ML 1 ML VIAL IV PRN (06:39)
[2024-04-10] MEDS ORDERED: HYDROmorphone 0.5 MG/0.5 ML SYRINGE IVP PRN (06:39)
[2024-04-10 06:41] LABS: ALT 22 U/L (4-34); African American GFR (CKD) >90 (>60 ml/min/1.73 sqM); Amylase 51 U/L (30-110); Anion Gap 18 mmol/L; Blood Urea Nitrogen 16 mg/dL (7-17); Calcium 10.1 mg/dL (8.4-10.2); Carbon Dioxide 15 mmol/L (22-30); Chloride 102 mmol/L (98-107); Glucose 158 mg/dL (74-99); Lipase 152 U/L (23-300); Non-African American GFR(CKD) >90 (>60 ml/min/1.73 sqM); Sodium 135 mmol/L (137-145); Total Bilirubin 1.4 mg/dL (0.2-1.3)
[2024-04-10] MEDS: HYDROmorphone 0.5 MG/0.5 ML SYRINGE IVP STA (06:53)
[2024-04-10] MEDS: MIDAZOLAM 2 MG/2 ML VIAL IV ONE (06:54)
[2024-04-10 07:16] LABS: AST 34 U/L (14-36); Alkaline Phosphatase 61 U/L (38-126); Potassium 4.5 mmol/L (3.5-5.1); Total Protein 8.3 g/dL (6.3-8.2)
[2024-04-10] MEDS: DEXTROSE 5%-0.45% NACL 1,000 ML IV SCH (07:19)
--- NOTE | 2024-04-10 07:20 | XR ---
EXAMINATION TYPE: XR chest 1V confirm line plcky DATE OF EXAM: 04/10/2024 COMPARISON: 05/19/2020 CLINICAL INDICATION: Female, 58 years old with history of NG Tube; TECHNIQUE: Single frontal view of the chest is obtained. FINDINGS: There is no focal air space opacity, pleural effusion, or pneumothorax seen. The cardiac silhouette size is within normal limits. The osseous structures are intact. NG tube is seen coursin g into the stomach. IMPRESSION: No acute process. [facility], , 04/10/2024 7:18 AM
[2024-04-10] MEDS: PANTOPRAZOLE 40 MG/10 ML VIAL IV SCH (08:12)
[2024-04-10] MEDS: HYDROmorphone 1 MG/ML 1 ML SYRINGE IVP PRN (10:29)
[2024-04-10 10:51] LABS: Appearance,Urine Clear (Clear); Bacteria,Urine Rare /hpf; Bilirubin,Urine Negative (Negative); Blood,Urine Small (Negative); Color,Urine Yellow; Glucose,Urine (UA) Negative (Negative); Ketones,Urine 1+ (Negative); Leukocyte Esterase,Urine Negative (Negative); Mucus,Urine Moderate /hpf; Nitrite,Urine Negative (Negative); PH, Urine 5.5 (5.0-8.0); Protein,Urine Negative (Negative); RBC,Urine <1 /hpf (0-5); Specific Gravity,Urine 1.026 (1.001-1.035); Squamous Epithelial Cell,Urine 1 /hpf (0-4); Urobilinogen,Urine <2.0 mg/dL (<2.0); WBC,Urine <1 /hpf (0-5)
[2024-04-10] MEDS ORDERED: BENZOCAINE SPRAY 1 CAN MUCOUS MEM PRN (11:02)
--- NOTE | 2024-04-10 11:46 | P.HPIM ---
History of Present Illness Pleasant 58-year-old field male came in with complaints of epigastric abdominal pain nausea vomiting. Patient had ileus in the past. Patient had a CT of the abdomen which showed the same this time patient only had a section twice in the past beyond that no other surgeries. Patient had any fever, cough, dysuria. Patient does have leukocytosis. Patient is not passing gas at this time REVIEW OF SYSTEMS: All other systems are negative except those mentioned in the HPI PHYSICAL EXAMINATION: GENERAL: The patient is alert and oriented x3, not in any acute distress. Well developed, well nourished. HEENT: Pupils are round and equally reacting to light. EOMI. No scleral icterus. No conjunctival pallor. Normocephalic, atraumatic. No pharyngeal erythema. No thyromegaly. CARDIOVASCULAR: S1 and S2 present. No murmurs, rubs, or gallops. PULMONARY: Chest is clear to auscultation, no wheezing or crackles. ABDOMEN: Soft, nontender, nondistended, sluggish bowel sounds. No palpable organomegaly. MUSCULOSKELETAL: No joint swelling or deformity. EXTREMITIES: No cyanosis, clubbing, or pedal edema. NEUROLOGICAL: Gross neurological examination did not reveal any focal deficits. SKIN: No rashes. Assessment and plan -Partial small bowel obstruction/ileus: On IV fluids NG tube we will continue no significant drainage from the NG tube, supportive care. Will use Toradol to avoid overuse of opiates for pain -Leukocytosis reactive -Gastroesophageal flux disease DVT prophylaxis: Lovenox Past Medical History Past Medical History: GERD/Reflux, Musculoskeletal Disorder, Thyroid Disorder Additional Past Medical History / Comment(s): Occasional PVC's. Seasonal allergies. HX THYROID PROB, NO CURRENT TX. LT KNEE PAIN, CREWS'S CYST. History of Any Multi-Drug Resistant Organisms: None Reported Past Surgical History: Section, Tonsillectomy Additional Past Surgical History / Comment(s): C-S X2. carpel tunnel Past Anesthesia/Blood Transfusion Reactions: Family History of Problems w/ Anesthesia, Motion Sickness Additional Past Anesthesia/Blood Transfusion Reaction / Comment(s): MOTHER HAD HX AGITATION AFTER ANESTHESIA. Past Psychological History: Anxiety Smoking Status: Never smoker Past Alcohol Use History: Rare - Past Family History Mother Family Medical History: Cancer Additional Family Medical History / Comment(s): from lung CA at age 74, and a history of colon CA as well. Father Family Medical History: Myocardial Infarction ([place]) Additional Family Medical History / Comment(s): perforated ulcer, several NE's. from NE at age 81 or 82. Medications and Allergies Home Medications Medication Instructions Recorded Confirmed Type Cetirizine HCl [Zyrtec] 20 mg PO HS 09/14/22 04/10/24 History Ibuprofen [Motrin Ib] 600 - 800 mg PO Q6H PRN 04/10/24 04/10/24 History Allergies Allergy/AdvReac Type Severity Reaction Status Date / Time banana Allergy Unknown Verified 04/10/24 08:37 bee venom protein (honey bee) Allergy Unknown Verified 04/10/24 08:37 latex Allergy TINGLING Verified 04/10/24 08:37 OF MOUTH/LIPS, RASH TO SKIN shellfish derived [Shellfish] Allergy Unknown Verified 04/10/24 08:37 tree nut [Nut] Allergy Unknown Verified 04/10/24 08:37 Milk Containing Products AdvReac Abdominal Verified 04/10/24 08:37 (Dairy) Pain, [Dairy] DIARRHEA prednisone AdvReac "OCC Verified 04/10/24 08:37 CAUSES HEART TO RACE, FEEL MISERABLE" Physical Exam Vitals: Vital Signs Temp Pulse Resp BP Pulse Ox 04/10/24 11:00 72 16 110/54 95 04/10/24 09:43 97.3 F L 04/10/24 09:00 70 18 132/44 93 L 04/10/24 07:42 79 18 118/56 93 L 04/10/24 04:27 97.4 F L 76 26 H 127/78 99 Intake and Output 04/09/24 04/10/24 04/10/24 22:59 06:59 14:59 Other: Weight 117.934 kg Results CBC & Chem 7: 04/10/24 04:37 04/10/24 04:37 Labs: Abnormal Lab Results - Last 24 Hours (Table) 04/10/24 04/10/24 04/10/24 Range/Units 04:37 04:37 04:37 WBC 14.6 H (3.8-10.6) k/uL Neutrophils # 12.4 H (1.3-7.7) k/uL Sodium 135 L (137-145) mmol/L Carbon Dioxide 15 L (22-30) mmol/L Glucose 158 H (74-99) mg/dL Plasma Lactic Acid North 3.0 H* (0.7-2.0) mmol/L Total Bilirubin 1.4 H (0.2-1.3) mg/dL Total Protein 8.3 H (6.3-8.2) g/dL Urine Ketones (Negative) Urine Blood (Negative) Urine Bacteria (None) /hpf Urine Mucus (None) /hpf 04/10/24 Range/Units 10:36 WBC (3.8-10.6) k/uL Neutrophils # (1.3-7.7) k/uL Sodium (137-145) mmol/L Carbon Dioxide (22-30) mmol/L Glucose (74-99) mg/dL Plasma Lactic Acid North (0.7-2.0) mmol/L Total Bilirubin (0.2-1.3) mg/dL Total Protein (6.3-8.2) g/dL Urine Ketones 1+ H (Negative) Urine Blood Small H (Negative) Urine Bacteria Rare H (None) /hpf Urine Mucus Moderate H (None) /hpf
[2024-04-10] MEDS: SODIUM CHLORIDE 0.9% 1,000 ML IV SCH (11:50)
--- NOTE | 2024-04-10 12:14 | P.GSCN ---
History of Present Illness Consult date: 04/10/24 History of present illness: CHIEF COMPLAINT: Abdominal pain HISTORY OF PRESENT ILLNESS: This is a 58-year-old female who presented the hospital with complaints of abdominal pain across upper abdomen with nausea vomiting and dry heaves. She reports symptoms started around 2 AM. Patient does report having epigastric pain and left upper quadrant pain for the last 2 weeks. She does complain of abdominal distention. She does have a prior history of ileus about a year ago. Denies any prior bowel obstruction history. She had a CT scan abdomen pelvis that reported developing small bowel obstruction. She does report having a small formed stool this morning. She has NG tube in place. Surgical history includes 2 C-sections. She does report her last colonoscopy was about 3 years ago and was unremarkable. She does have a family history of her mother and a aunt on her father side with colon cancer. PAST MEDICAL HISTORY: See below. PVCs PAST SURGICAL HISTORY: See below MEDICATIONS: See below ALLERGIES: See below SOCIAL HISTORY: No illicit drug use. REVIEW OF SYSTEMS: CONSTITUTIONAL: Denies fever or chills. HEENT: Denies blurred vision, vision changes, or eye pain. Denies hemoptysis CARDIOVASCULAR: Denies chest pain or pressure. RESPIRATORY: No shortness of breath. GASTROINTESTINAL: See HPI for pertinent findings HEMATOLOGIC: Denies bleeding disorders. GENITOURINARY: Denies any blood in urine or increased urinary frequency. SKIN: Denies pruitis. Denies rash. PHYSICAL EXAM: VITAL SIGNS: Reviewed GENERAL: Well-developed in no acute distress. HEENT: No sclera icterus. Extraocular movements grossly intact. Moist buccal mucosa. Head is atraumatic, normocephalic. No nasal drainage. ABDOMEN: Soft. Nondistended. Tenderness palpation across upper abdomen. No rebound or guarding noted. NEUROLOGIC: Alert and oriented. Cranial nerves II through XII grossly intact. LABORATORY DATA: WBC is 14.6 Hgb 15 platelets 323 Sodium 135 potassium is 4.5 creatinine 0.60 Lactic acid 3.0 down to 1.7 Influenza, RSV COVID-19 not detected IMAGING: CT scan abdomen pelvis mild dilatation of multiple loops of small bowel measuring up to 3.8 cm. Findings are favored to relate to developing small bowel obstruction. Transition point is poorly identified but suspected within the pelvis ASSESSMENT: 1. Small bowel obstruction 2. History of x 2 3. Leukocytosis 4. Elevated lactic acid level PLAN: -Small bowel follow-through with Gastrografin ordered for diagnostic and therapeutic evaluation of small bowel obstruction -Continue NG tube for decompression -Keep patient n.p.o. except for ice chips -Continue IV fluids -Continue pain medication -HurriCaine spray ordered for throat irritation from NG tube Physician Supervisor Irrigation note has been reviewed by physician. Signing provider agrees with the documented findings, assessment, and plan of care. Past Medical History Past Medical History: GERD/Reflux, Musculoskeletal Disorder, Thyroid Disorder Additional Past Medical History / Comment(s): Occasional PVC's. Seasonal allergies. HX THYROID PROB, NO CURRENT TX. LT KNEE PAIN, CREWS'S CYST. History of Any Multi-Drug Resistant Organisms: None Reported Past Surgical History: Section, Tonsillectomy Additional Past Surgical History / Comment(s): C-S X2. carpel tunnel Past Anesthesia/Blood Transfusion Reactions: Family History of Problems w/ Ane sthesia, Motion Sickness Additional Past Anesthesia/Blood Transfusion Reaction / Comm: MOTHER HAD HX AGITATION AFTER ANESTHESIA. Past Psychological History: Anxiety Smoking Status: Never smoker Past Alcohol Use History: Rare - Past Family History Mother Family Medical History: Cancer Additional Family Medical History / Comment(s): from lung CA at age 74, and a history of colon CA as well. Father Family Medical History: Myocardial Infarction ([place]) Additional Family Medical History / Comment(s): perforated ulcer, several MA's. from [place] at age 81 or 82. Medications and Allergies Home Medications Medication Instructions Recorded Confirmed Type Cetirizine HCl [Zyrtec] 20 mg PO HS 09/14/22 04/10/24 History Ibuprofen [Motrin Ib] 600 - 800 mg PO Q6H PRN 04/10/24 04/10/24 History Allergies Allergy/AdvReac Type Severity Reaction Status Date / Time banana Allergy Unknown Verified 04/10/24 08:37 bee venom protein (honey bee) Allergy Unknown Verified 04/10/24 08:37 latex Allergy TINGLING Verified 04/10/24 08:37 OF MOUTH/LIPS, RASH TO SKIN shellfish derived [Shellfish] Allergy Unknown Verified 04/10/24 08:37 tree nut [Nut] Allergy Unknown Verified 04/10/24 08:37 Milk Containing Products AdvReac Abdominal Verified 04/10/24 08:37 (Dairy) Pain, [Dairy] DIARRHEA prednisone AdvReac "OCC Verified 04/10/24 08:37 CAUSES HEART TO RACE, FEEL MISERABLE" Surgical - Exam Vital Signs Temp Pulse Resp BP Pulse Ox 97.4 F L 76 26 H 127/78 99 04/10/24 04:27 04/10/24 04:27 04/10/24 04:27 04/10/24 04:27 04/10/24 04:27 Results - Labs 04/10/24 04:37 04/10/24 04:37 Abnormal Lab Results - Last 24 Hours (Table) 04/10/24 04/10/24 04/10/24 Range/Units 04:37 04:37 04:37 WBC 14.6 H (3.8-10.6) k/uL Neutrophils # 12.4 H (1.3-7.7) k/uL Sodium 135 L (137-145) mmol/L Carbon Dioxide 15 L (22-30) mmol/L Glucose 158 H (74-99) mg/dL Plasma Lactic Acid North 3.0 H* (0.7-2.0) mmol/L Total Bilirubin 1.4 H (0.2-1.3) mg/dL Total Protein 8.3 H (6.3-8.2) g/dL Urine Ketones (Negative) Urine Blood (Negative) Urine Bacteria (None) /hpf Urine Mucus (None) /hpf 04/10/24 Range/Units 10:36 WBC (3.8-10.6) k/uL Neutrophils # (1.3-7.7) k/uL Sodium (137-145) mmol/L Carbon Dioxide (22-30) mmol/L Glucose (74-99) mg/dL Plasma Lactic Acid North (0.7-2.0) mmol/L Total Bilirubin (0.2-1.3) mg/dL Total Protein (6.3-8.2) g/dL Urine Ketones 1+ H (Negative) Urine Blood Small H (Negative) Urine Bacteria Rare H (None) /hpf Urine Mucus Moderate H (None) /hpf Diabetes panel 04/10/24 Range/Units 04:37 Sodium 135 L (137-145) mmol/L Potassium 4.5 (3.5-5.1) mmol/L Chloride 102 (98-107) mmol/L Carbon Dioxide 15 L (22-30) mmol/L BUN 16 (7-17) mg/dL Creatinine 0.60 (0.52-1.04) mg/dL Glucose 158 H (74-99) mg/dL Calcium 10.1 (8.4-10.2) mg/dL AST 34 (14-36) U/L ALT 22 (4-34) U/L Alkaline Phosphatase 61 (38-126) U/L Total Protein 8.3 H (6.3-8.2) g/dL Albumin 5.0 (3.5-5.0) g/dL Calcium panel 04/10/24 Range/Units 04:37 Calcium 10.1 (8.4-10.2) mg/dL Albumin 5.0 (3.5-5.0) g/dL Pituitary panel 04/10/24 Range/Units 04:37 Sodium 135 L (137-145) mmol/L Potassium 4.5 (3.5-5.1) mmol/L Chloride 102 (98-107) mmol/L Carbon Dioxide 15 L (22-30) mmol/L BUN 16 (7-17) mg/dL Creatinine 0.60 (0.52-1.04) mg/dL Glucose 158 H (74-99) mg/dL Calcium 10.1 (8.4-10.2) mg/dL Adrenal panel 04/10/24 Range/Units 04:37 Sodium 135 L (137-145) mmol/L Potassium 4.5 (3.5-5.1) mmol/L Chloride 102 (98-107) mmol/L Carbon Dioxide 15 L (22-30) mmol/L BUN 16 (7-17) mg/dL Creatinine 0.60 (0.52-1.04) mg/dL Glucose 158 H (74-99) mg/dL Calcium 10.1 (8.4-10.2) mg/dL Total Bilirubin 1.4 H (0.2-1.3) mg/dL AST 34 (14-36) U/L ALT 22 (4-34) U/L Alkaline Phosphatase 61 (38-126) U/L Total Protein 8.3 H (6.3-8.2) g/dL Albumin 5.0 (3.5-5.0) g/dL
--- NOTE | 2024-04-10 16:23 | FL ---
EXAMINATION TYPE: FL small bowel follow through DATE OF EXAM: 04/10/2024 COMPARISON: Correlation CT same day CLINICAL INDICATION: Female, 58 years old with history of abdominal pain, follow up on SBO; [facility], TECHNIQUE: A single contrast small bowel follow through is performed utilizing barium. FINDINGS: Cost And Sales Record Supervisor image of the abdomen shows NG tube in place. A few distended small bowel loops appea r to be present, in the left paramedian mid abdomen measuring up to 3.7 cm. Overall possibility of co lonic air. The small bowel study shows delayed transit time to the colon. Imaging is carried out to 3 hours and the oral contrast has only reached to the mid small bowel level. Incidentally, there is a tiny hiatal hernia. IMPRESSION: Delayed small bowel transit time. At 3 hours, oral contrast has only reached to the mid s mall bowel level. Some nonopacified loops are distended up to 3.7 cm though the opacified loops appea r relatively normal in caliber. Both ileus and small bowel obstruction remain in the differential at this time. Radiographic follow-up with serial KUB can be considered. Next image in one hour. [facility], , 04/10/2024 4:21 PM
[2024-04-10] MEDS: ONDANSETRON 4 MG/2 ML VIAL IVP PRN (16:54)
--- NOTE | 2024-04-10 17:31 | XR ---
EXAMINATION TYPE: XR abdomen 1V DATE OF EXAM: 04/10/2024 5:23 PM COMPARISON: 04/10/2024 CLINICAL INDICATION: Female, 58 years old with history of Follow Up SBFT; [facility] pain TECHNIQUE: One radiographic view of the abdomen was obtained. FINDINGS: Contrast extends into the small bowel. No evidence for dilated loops of small bowel. Nasoga stric tube in place. The bowel gas pattern is nonspecific without dilated loops of small or large bow el. . Fecal material and gas are demonstrated throughout the colon and rectum. There is no evidence f or organomegaly or pneumoperitoneum. No acute osseous process. No abnormal calcifications are prese nt. IMPRESSION: Oral contrast extends to the small bowel. Nonspecific bowel gas pattern without radiographic evidence for acute process. [facility], , 04/10/2024 5:28 PM
--- NOTE | 2024-04-10 21:30 | XR ---
EXAMINATION TYPE: XR abdomen 1V DATE OF EXAM: 04/10/2024 9:19 PM COMPARISON: Same day CLINICAL INDICATION: Female, 58 years old with history of Follow up SBFT; [facility] TECHNIQUE: One radiographic view of the abdomen was obtained. FINDINGS: Oral contrast extends to the sigmoid colon/rectum at 8 hours.The bowel gas pattern is nonsp ecific without dilated loops of small or large bowel. . Fecal material and gas are demonstrated throu ghout the colon and rectum. There is no evidence for organomegaly or pneumoperitoneum. No acute osse ous process. No abnormal calcifications are present. IMPRESSION: 1. No evidence of bowel obstruction, Oral contrast extends to the sigmoid colon/rectum at 8 hours. 2. Nonspecific bowel gas pattern without radiographic evidence for acute process. [facility], , 04/10/2024 9:22 PM
[2024-04-11 08:02] LABS: HCT 37.6 % (34.0-46.0); HGB 12.2 gm/dL (11.4-16.0); MCH 30.4 pg (25.0-35.0); MCHC 32.5 g/dL (31.0-37.0); MCV 93.5 fL (80.0-100.0); Mean Platelet Volume 7.3; Platelet Count 213 k/uL (150-450); RBC 4.02 m/uL (3.80-5.40); RDW 12.5 % (11.5-15.5)
[2024-04-11 08:15] LABS: African American GFR (CKD) >90 (>60 ml/min/1.73 sqM); Anion Gap 9 mmol/L; Blood Urea Nitrogen 10 mg/dL (7-17); Calcium 8.6 mg/dL (8.4-10.2); Carbon Dioxide 26 mmol/L (22-30); Chloride 102 mmol/L (98-107); Glucose 89 mg/dL (74-99); Non-African American GFR(CKD) >90 (>60 ml/min/1.73 sqM); Potassium 3.3 mmol/L (3.5-5.1); Sodium 137 mmol/L (137-145)
[2024-04-11] MEDS: ENOXAPARIN 40 MG/0.4 ML SYRINGE SQ SCH (09:37)
[2024-04-11] MEDS ORDERED: Potassium Replacement Protocol 1 EACH MISC MISCELLANE PRN (09:37)
[2024-04-11] MEDS: KETOROLAC 15 MG/ML 1 ML VIAL IVP PRN (09:44)
--- NOTE | 2024-04-11 10:27 | P.PN ---
Subjective Progress Note Date: 04/11/24 CHIEF COMPLAINT: Abdominal pain HISTORY OF PRESENT ILLNESS: Patient reports improvement in her abdominal pain. She is having bowel movements and flatus. She is complaining mostly of a headache and sore throat from the NG tube. Her small bowel follow-through had reported delayed small bowel transit time. 3 hours oral contrast his only reached to the mid small bowel level. Both ileus and small bowel obstruction remain in the differential. Evening follow-up abdominal x-ray reports no evidence of bowel obstruction. Oral contrast extends to the sigmoid colon/rectum at 8 hours. Afebrile. WBC is down from 14.6-7 potassium 3.3 PHYSICAL EXAM: VITAL SIGNS: Reviewed GENERAL: Well-developed in no acute distress. HEENT: No sclera icterus. Extraocular movements grossly intact. Moist buccal mucosa. Head is atraumatic, normocephalic. Hears conversational speech. No nasal drainage. NECK: Supple without lymphadenopathy. CHEST: Non-labored respirations and equal bilateral excursions. CARDIOVASCULAR: Palpable 2+ radial pulses. ABDOMEN: Soft. Nondistended. Tenderness left upper quadrant with palpation MUSCULOSKELETAL: No clubbing or cyanosis. NEUROLOGIC: No focal or lateralizing signs. Cranial nerves II through XII grossly intact. PSYCH: Appropriate affect. Alert and oriented to person, place and time. SKIN: Well perfused. Good skin turgor. ASSESSMENT: 1. Small bowel obstruction improved with conservative management 2. History of x 2 3. Leukocytosis resolved 4. Elevated lactic acid level improved 5. Hypokalemia PLAN: -Discontinue NG tube -Start clear liquid diet -Encourage patient to increase activity level -Potassium being replaced by medicine service Physician Monomer Recovery Operator note has been reviewed by physician. Signing provider agrees with the documented findings, assessment, and plan of care. Objective - Vital Signs Vital signs: Vital Signs Temp 98.4 F 04/11/24 07:00 Pulse 97 04/11/24 07:00 Resp 16 04/11/24 07:00 BP 102/64 04/11/24 07:00 Pulse Ox 97 04/11/24 07:00 FiO2 - Labs CBC & Chem 7: 04/11/24 06:50 04/11/24 06:50 Labs: Abnormal Lab Results - Last 24 Hours (Table) 04/10/24 04/11/24 Range/Units 10:36 06:50 Potassium 3.3 L (3.5-5.1) mmol/L Urine Ketones 1+ H (Negative) Urine Blood Small H (Negative) Urine Bacteria Rare H (None) /hpf Urine Mucus Moderate H (None) /hpf
[2024-04-11] MEDS: POTASSIUM CHLORIDE 10 MEQ in WATER FOR INJECTION 1 100ML.BAG IVPB SCH (11:21)
[2024-04-11] MEDS: POTASSIUM BICARBONATE/CIT AC 20 MEQ TABLET.EFF PO SCH (12:53)
[2024-04-11 14:53] VITALS: BP 103/66; PULSE 64; RESP 17; TEMP 97.9
== END 2024-04-11 16:45 | disposition home or self-care (01) | DRG 389 ==
LOC: EC 04:22 → 6NMEDSUR 06:39 → OBSVTOIN 06:40 → 1SOBS 15:31
PROVIDERS: ADMIT Hospitalist; ATTEND Hospitalist
PROC: 0DH67UZ Insertion of Feeding Device into Stomach, Via Natural or Artificial Opening (ICD-10-PCS; principal; 2024-04-10)
DX: K56.600 Partial intestinal obstruction, unspecified as to cause (principal); E87.20 Acidosis, unspecified; K56.7 Ileus, unspecified; E87.6 Hypokalemia; Z11.52 Encounter for screening for COVID-19; K21.9 Gastro-esophageal reflux disease without esophagitis; D72.829 Elevated white blood cell count, unspecified; F41.9 Anxiety disorder, unspecified; Z82.49 Family history of ischemic heart disease and other diseases of the circulatory system; Z91.030 Bee allergy status; Z91.018 Allergy to other foods; Z88.6 Allergy status to analgesic agent; Z91.013 Allergy to seafood; Z91.011 Allergy to milk products
CPT/HCPCS: 36415; 74018; 74176; 74250; 80048; 80053; 81001; 82150; 83605; 83690; 85025; 85027; 87636; 96361; 96374; 96375; 96376; 99285